=== PATIENT | male | born 1970 | race African-American/Black ===

== ENCOUNTER 2023-04-10 08:34 | Outpatient (AMB) | payer OTHER, SELFPAY ==
--- NOTE | 2023-04-10 08:35 | A.OFFPC_ITS ---
Vital Signs 04/10/23 08:37 Height 5 ft 9 in Weight 224 lb 4 oz BMI 33.1 BP 122/82 Blood Pressure Location Lt brachial Position Sitting Pulse 91 Pulse Source Pulse Oximeter Pulse Oximetry (%) 98 Oxygen Delivery Method Room Air Intake Visit Reasons: Annual Exam Intake Note: Patient is here today for a physical. 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 per policy Accompanied by: Self / Same As Patient Allergies No Known Allergies Allergy (Verified 04/10/23 08:37) seasonal Allergy (Unknown, Uncoded 04/10/23 08:37) Unknown Medication List - Last Reconciled 04/10/23 by Tristin Feng MD amlodipine 10 mg PO DAILY hydrochlorothiazide 25 mg PO DAILY lisinopril 40 mg PO DAILY metformin ER 1,000 mg (2 x 500 mg) PO BID Tobacco use date assessed: 04/10/23 Dental Screening Dental Screen Date: 04/10/23 Did you have a dental visit in the last 12 months?: Yes Did you have a dental problem in the last 6 months where you did not have access to dental care?: No Was dental information given to patient?: Patient has dentist HPI Annual Exam HPI Details HTN and DM [facility] Medical History (Updated 04/10/23 @ 09:36 by Tristin Feng MD) Diabetes mellitus with coincident hypertension Obesity Type 2 diabetes mellitus without complications Surgical History No pertinent past surgical history Family History Father No problems noted. Mother Stroke Hypertension Cancer Brother Substance use disorder Social History Housing: House Alcohol intake: current Alcohol intake frequency: holidays/special occasions only Patient Tobacco Use Status: Never used Tobacco e-Cigarette/Vaping Use: Never Used Second Hand Smoke Exposure: No service: No Current occupational status: employed Cognitive needs: No Hearing needs: No Vision needs: No Questionnaire Thrive Questionnaire Date Thrive assessed: 02/05/23 NIDHI-7 AMB Questionnaire NIDHI-7 Date NIDHI - 7 assessed: 10/06/22 Source: Developed by Drs. Otto Bhatt, Esha Valera, Fareed Wynn and colleagues, with an educational juan from [employer],. Review of Systems Const Denies chills, Denies fatigue, Denies headache(s) and Denies weight loss Eyes Denies change in vision, Denies diplopia and Denies eye pain ENT Denies vertigo, Denies dizziness, Denies headache(s) and Denies nasal discharge Card Denies chest pain, Denies rapid heart rate and Denies dyspnea on exertion Resp Denies chest congestion, Denies cough, Denies pain with cough and Denies dyspnea on exertion GI Denies abdominal pain, Denies hematochezia and Denies change in bowel habits Musc Denies myalgias, Denies arthralgias and Denies joint swelling Skin/Breast Denies lesions and Denies unusual bruising Neuro Denies vertigo, Denies dizziness, Denies headache(s) and Denies focal weakness Endo Denies fatigue Physical exam (Primary Care) Vital Signs: Last Vital Signs Pulse 91 04/10/23 08:37 BP 122/82 04/10/23 08:37 Pulse Ox 98 04/10/23 08:37 Oxygen Delivery Method Room Air 04/10/23 08:37 BMI result Body Mass Index 33.1 obesity BMI Assessment/Plan discussion: High BMI High, discussed plan: lifestyle, dietary and physical activity Tobacco/Smoking Status: Tobacco use Status Tobacco use date assessed 04/10/23 04/10/23 08:41 Patient Tobacco Use Status Never used Tobacco 04/10/23 08:36 e-Cigarette/Vaping Use Never Used 04/10/23 08:36 Thrive Assessment: Date of Thrive Assessment Date Thrive assessed 02/05/23 04/10/23 08:36 Const General: cooperative, healthy appearing and no acute distress Orientation/consciousness: oriented to person, oriented to place and oriented to time [facility] Head: Yes normal to inspection, Yes normocephalic and Yes atraumatic Mouth: Normal oral and palatal mucosa present and tongue normal Throat: Yes posterior oropharynx normal and Yes uvula midline Eyes General: appearance normal, both eyes and all related structures Neck Neck: Yes normal visual inspection, Yes full ROM and Yes no lymphadenopathy Thyroid: Thyroid normal Carotids: normal carotid upstroke Chest Chest palpation & inspection: normal inspection of the chest Resp Effort & Inspection: normal respiratory effort and able to speak in complete sentences Auscultation: clear to auscultation bilaterally Cardio Jugular venous distension: no JVD Palpation: normal PMI Rate: regular rate Rhythm: regular rhythm Heart sounds: S1 normal heart sound present and S2 normal heart sound present GI Inspection: Yes normal to inspection Palpation (GI): Soft to palpation and No hepatosplenomegaly present Auscultation: normal bowel sounds General: Yes no CVA tenderness Back/Spine/Pelvis Back: no CVA tenderness Skin General skin exam: no rashes or lesions noted Neuro General: oriented to person, oriented to place and oriented to time Extrem General: Yes normal to inspection and Yes full ROM Assessment and Plan Assessment & Plan (1) Physical exam: Code(s): Z00.00 - Encounter for general adult medical examination without abnormal findings Plan: stable (2) Diabetes mellitus with coincident hypertension: Code(s): E11.9 - Type 2 diabetes mellitus without complications; I10 - Essential (primary) hypertension Plan: in good control; check labs (3) Obesity: Code(s): E66.9 - Obesity, unspecified Plan: as above (4) Hypertension: Code(s): I10 - Essential (primary) hypertension Plan: stable Orders: Orders Comprehensive Henry. Panel Fast Today N28.9 - Disorder of kidney and ureter, unspecified Hemoglobin A1c Today R73.9 - Hyperglycemia, unspecified Lipid Panel Today E78.5 - Hyperlipidemia, unspecified Microalbumin, Random (w Creat) Today E11.69 - Type 2 diabetes mellitus with other specified complication, E66.01 - Morbid (severe) obesity due to excess calories Complete Blood Count Auto Diff Today D64.9 - Anemia, unspecified Coding Level of Care Code Est Pt Prev Care 40-64y(89390) Diagnoses Physical exam Z00.00 Diabetes mellitus with coincident hypertension E11.9; I10 Obesity E66.9 Hypertension I10
[2023-04-10 08:37] VITALS: BP 122/82; PULSE 91; O2SAT 98; BMI 33.1
== END 2023-04-10 09:22 | disposition home or self-care (01) ==
PROVIDERS: PCP Internal Medicine; Visit Provider Internal Medicine
DX: Z00.00 Encounter for general adult medical examination without abnormal findings (principal); E11.9 Type 2 diabetes mellitus without complications; Z68.33 Body mass index [BMI] 33.0-33.9, adult; E66.9 Obesity, unspecified; I10 Essential (primary) hypertension
CPT/HCPCS: 99396

== ENCOUNTER 2023-07-11 08:37 | Outpatient (AMB) | payer OTHER, SELFPAY ==
[2023-07-11 08:43] VITALS: BP 132/84; PULSE 90; O2SAT 98; BMI 33.1
--- NOTE | 2023-07-11 08:43 | MHC.PC.OV ---
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 policy Accompanied by: Self / Same As Patient Allergies No Known Allergies Allergy (Verified 07/11/23 08:43) seasonal Allergy (Unknown, Uncoded 07/11/23 08:43) Unknown Medication List - Last Reconciled 07/11/23 by Tristin Feng MD amlodipine 10 mg PO DAILY hydrochlorothiazide 25 mg PO DAILY lisinopril 40 mg PO DAILY metformin ER 1,000 mg (2 x 500 mg) PO BID Tobacco use date assessed: 04/10/23 Dental Screening Dental Screen Date: 07/11/23 Did you have a dental visit in the last 12 months?: Yes Did you have a dental problem in the last 6 months where you did not have access to dental care?: No Was dental information given to patient?: Patient has dentist HPI 3mth f/u HPI Details DM HTN and obesity; A1C 7.0 [facility] Medical History Obesity Diabetes mellitus with coincident hypertension Type 2 diabetes mellitus without complications Surgical History No pertinent past surgical history Family History Father No problems noted. Mother Stroke Hypertension Cancer Brother Substance use disorder Social History Housing: House Alcohol intake: current Alcohol intake frequency: holidays/special occasions only Patient Tobacco Use Status: Never used Tobacco e-Cigarette/Vaping Use: Never Used Second Hand Smoke Exposure: No service: No Current occupational status: employed Cognitive needs: No Hearing needs: No Vision needs: No Questionnaire Thrive Questionnaire Date Thrive assessed: 02/05/23 NIDHI-7 AMB Questionnaire NIDHI-7 Date NIDHI - 7 assessed: 10/06/22 Source: Developed by Drs. Otto Bhatt, Esha Valera, Faered Wynn and colleagues, with an educational juan from [employer]. Review of Systems Const Denies chills, Denies headache(s) and Denies weight loss ENT Denies headache(s) Card Denies chest pain, Denies syncope, Denies irregular heart rhythm and Denies dyspnea Resp Denies chest congestion, Denies cough and Denies dyspnea GI Denies abdominal pain, Denies change in stool character, Denies nausea and Denies vomiting Musc Denies deformity and Denies joint swelling Neuro Denies syncope and Denies headache(s) Physical exam (Primary Care) Vital Signs: Last Vital Signs Pulse 90 07/11/23 08:43 BP 132/84 07/11/23 08:43 Pulse Ox 98 07/11/23 08:43 Oxygen Delivery Method Room Air 07/11/23 08:43 BMI result Body Mass Index 33.1 obesity BMI Assessment/Plan discussion: High BMI High, discussed plan: lifestyle, weight reduction, dietary and physical activity Tobacco/Smoking Status: Tobacco use Status Tobacco use date assessed 04/10/23 07/11/23 08:44 Patient Tobacco Use Status Never used Tobacco 07/11/23 08:44 e-Cigarette/Vaping Use Never Used 07/11/23 08:44 Thrive Assessment: Date of Thrive Assessment Date Thrive assessed 02/05/23 07/11/23 08:44 Const General: cooperative, comfortable, no acute distress and alert Neck Neck: Yes no lymphadenopathy Thyroid: Thyroid normal Resp Effort & Inspection: normal respiratory effort Auscultation: clear to auscultation bilaterally Percussion: percussion normal Cardio Jugular venous distension: no JVD Palpation: normal PMI Rate: regular rate Rhythm: regular rhythm Heart sounds: S1 normal heart sound present and S2 normal heart sound present GI Inspection: Yes normal to inspection Palpation (GI): No hepatosplenomegaly present Skin General skin exam: no rashes or lesions noted Extrem General: Yes no clubbing, cyanosis or edema Assessment and Plan Assessment & Plan (1) Diabetes mellitus with coincident hypertension: Code(s): E11.9 - Type 2 diabetes mellitus without complications; I10 - Essential (primary) hypertension Plan: stable; same rx (2) Obesity: Code(s): E66.9 - Obesity, unspecified Plan: as above (3) Hypertension: Code(s): I10 - Essential (primary) hypertension Plan: stable; same rx Orders: Orders AMB Hemoglobin A1c Today E11.9 - Type 2 diabetes mellitus without complications, I10 - Essential (primary) hypertension Glucose Fasting Today R73.9 - Hyperglycemia, unspecified Hemoglobin A1c Today R73.9 - Hyperglycemia, unspecified Coding Level of Care Code Est Pt Level 4 (11157) Diagnoses Diabetes mellitus with coincident hypertension E11.9; I10 Obesity E66.9 Hypertension I10
== END 2023-07-11 08:58 | disposition home or self-care (01) ==
PROVIDERS: PCP Internal Medicine; Visit Provider Internal Medicine
DX: E11.9 Type 2 diabetes mellitus without complications (principal); I10 Essential (primary) hypertension; E66.9 Obesity, unspecified; Z68.33 Body mass index [BMI] 33.0-33.9, adult
CPT/HCPCS: 83036; 99214

== ENCOUNTER 2023-10-15 08:06 | Outpatient (AMB) | payer OTHER, SELFPAY ==
[2023-10-15 08:34] VITALS: BP 136/86; PULSE 88; O2SAT 100; BMI 33.7
--- NOTE | 2023-10-15 08:34 | MHC.PC.OV ---
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 Accompanied by: Self / Same As Patient Allergies No Known Allergies Allergy (Verified 10/15/23 08:34) seasonal Allergy (Unknown, Uncoded 10/15/23 08:34) Unknown Medication List - Last Reconciled 10/15/23 by Tristin Feng MD amlodipine 10 mg PO DAILY hydrochlorothiazide 25 mg PO DAILY lisinopril 40 mg PO DAILY metformin ER 1,000 mg (2 x 500 mg) PO BID Tobacco use date assessed: 10/15/23 Dental Screening Dental Screen Date: 10/15/23 Did you have a dental visit in the last 12 months?: Yes Did you have a dental problem in the last 6 months where you did not have access to dental care?: No Was dental information given to patient?: Patient has dentist HPI 3 Month F/U HPI Details poorly controlled DM with diet and exercise non-compliance [facility] Medical History Obesity Diabetes mellitus with coincident hypertension Type 2 diabetes mellitus without complications Surgical History No pertinent past surgical history Family History Father No problems noted. Mother Stroke Hypertension Cancer Brother Substance use disorder Social History Housing: House Alcohol intake: current Alcohol intake frequency: holidays/special occasions only Patient Tobacco Use Status: Never used Tobacco e-Cigarette/Vaping Use: Never Used Second Hand Smoke Exposure: No service: No Current occupational status: employed Cognitive needs: No Hearing needs: No Vision needs: No Questionnaire PHQ-9 Over the last 2 weeks, how often have you been bothered by any of the following problems? 1. Little interest or pleasure in doing things: not at all 2. Feeling down, depressed, or hopeless: not at all 3. Trouble falling or staying asleep, or sleeping too much: not at all 4. Feeling tired or having little energy: not at all 5. Poor appetite or overeating: not at all 6. Feeling bad about yourself - or that you are a failure or have let yourself or your family down: not at all 7. Trouble concentrating on things, such as reading the newspaper or watching television: not at all 8. Moving or speaking so slowly that other people could have noticed. Or the opposite - being so fidgety or restless that you have been moving around a lot more than usual: not at all 9. Thoughts that you would be better off or of hurting yourself in some way: not at all Total score: 0 Depression Screening Interpretation: Negative Depression Screening Done: Yes 92474 - PHQ-9 Billing: Yes Source: Developed by Drs. Otto Bhatt, Esha Valera, Fareed Wynn and colleagues, with an educational juan from [employer]. Thrive Questionnaire Date Thrive assessed: 10/15/23 I am a: Patient What is your living situation today?: I have a steady place to live Within the past 12 months, did the food you bought not last and you didn't have the money to get more?: Never true Within the past 12 months, did you worry whether your food would run out before you got money to buy more?: Never true Do you have trouble paying for medicines?: No Do you have trouble getting transportation to medical appointments?: No Do you have trouble paying your heating and electricity bill?: No Do you have trouble taking care of your child, family member or friend?: No Do you have trouble with day-to-day activities such as bathing, preparing meals, shopping, managing finances, etc.?: No Are you currently unemployed and looking for a job?: No Are you interested in more education?: No Please select the resources that you would like help with: None THRIVE Score: 0 AUDIT C Alcohol Use Questionnaire (AUDIT-C) 1. How often do you have a drink containing alcohol?: Never Total Score: 0 Score Reviewed/Action Taken: Yes NIDHI-7 AMB Questionnaire NIDHI-7 Date NIDHI - 7 assessed: 10/15/23 Feeling nervous, anxious, or on edge: 0 = Not at all Not being able to stop or control worryin = Not at all Worrying too much about different things: 0 = Not at all Trouble relaxin = Not at all Being so restless that it is hard to sit still: 0 = Not at all Becoming easily annoyed or irritable: 0 = Not at all Feeling afraid as if something awful might happen: 0 = Not at all Total NIDHI-7 score (0-4 normal; 5-9 mild; 10-14 moderate; 15-21 severe): 0 Source: Developed by Drs. Otto Bhatt, Esha Valera, Fareed Wynn and colleagues, with an educational juan from [employer]. NIDHI-7 Assessment Billing NIDHI-7 Assessment Tool: NIDHI-7 Assessment 02852 Review of Systems Const Denies chills, Denies headache(s) and Denies weight loss ENT Denies headache(s) Card Denies chest pain, Denies syncope, Denies irregular heart rhythm and Denies dyspnea Resp Denies chest congestion, Denies cough and Denies dyspnea GI Denies abdominal pain, Denies change in stool character, Denies nausea and Denies vomiting Musc Denies deformity and Denies joint swelling Neuro Denies syncope and Denies headache(s) Physical exam (Primary Care) Vital Signs: Last Vital Signs Pulse 88 10/15/23 08:34 BP 136/86 10/15/23 08:34 Pulse Ox 100 10/15/23 08:34 Oxygen Delivery Method Room Air 10/15/23 08:34 BMI result Body Mass Index 33.7 Tobacco/Smoking Status: Tobacco use Status Tobacco use date assessed 10/15/23 10/15/23 08:35 Patient Tobacco Use Status Never used Tobacco 10/15/23 08:35 e-Cigarette/Vaping Use Never Used 10/15/23 08:35 PHQ-9: PHQ-9 Score PHQ-9: Total score 0 10/15/23 08:49 Depression Screening Interpretation: Negative Thrive Assessment: Date of Thrive Assessment Date Thrive assessed 10/15/23 10/15/23 08:35 Const General: cooperative, comfortable, no acute distress and alert Neck Neck: Yes no lymphadenopathy Thyroid: Thyroid normal Resp Effort & Inspection: normal respiratory effort Auscultation: clear to auscultation bilaterally Percussion: percussion normal Cardio Jugular venous distension: no JVD Palpation: normal PMI Rate: regular rate Rhythm: regular rhythm Heart sounds: S1 normal heart sound present and S2 normal heart sound present GI Inspection: Yes normal to inspection Palpation (GI): No hepatosplenomegaly present Skin General skin exam: no rashes or lesions noted Extrem General: Yes no clubbing, cyanosis or edema Results AMB Hemoglobin A1c AMB Hemoglobin A1c 8.9 % Last Edit by ZI Issa on 10/15/23 08:50 Results Reviewed Results Reviewed: Laboratory Last Values Hgb A1c (Clinic) 8.9 % (4.0-6.0) H 10/15/23 08:35 Assessment and Plan Assessment & Plan (1) Diabetes mellitus with coincident hypertension: Code(s): E11.9 - Type 2 diabetes mellitus without complications; I10 - Essential (primary) hypertension Plan: same rx; improve diet (2) Hypertension: Code(s): I10 - Essential (primary) hypertension Plan: stable; same rx Orders: Orders AMB Hemoglobin A1c Today E11.9 - Type 2 diabetes mellitus without complications Lipid Panel Today E78.5 - Hyperlipidemia, unspecified Glucose Fasting Today R73.9 - Hyperglycemia, unspecified Hemoglobin A1c Today R73.9 - Hyperglycemia, unspecified Coding Level of Care Code Est Pt Level 3 (94579) Diagnoses Diabetes mellitus with coincident hypertension E11.9; I10 Hypertension I10 Additional Codes NIDHI-7 Assessment Billing - NIDHI-7 Assessment Tool: NIDHI-7 Assessment [id number] ([id number])
== END 2023-10-15 08:49 | disposition home or self-care (01) ==
PROVIDERS: PCP Internal Medicine; Visit Provider Internal Medicine
DX: E11.9 Type 2 diabetes mellitus without complications (principal); I10 Essential (primary) hypertension
CPT/HCPCS: 83036; 99213

== ENCOUNTER 2024-03-17 08:07 | Outpatient (AMB) | payer OTHER, SELFPAY ==
[2024-03-17 08:16] VITALS: BP 148/80; PULSE 81; O2SAT 98; BMI 33.1
--- NOTE | 2024-03-17 08:16 | A.OFFPC_ITS ---
Vital Signs 03/17/24 08:16 Height 5 ft 9 in Weight 224 lb BMI 33.1 BP 148/80 H Blood Pressure Location Lt brachial Position Sitting Pulse 81 Pulse Source Pulse Oximeter Pulse Oximetry (%) 98 Oxygen Delivery Method Room Air Intake Visit Reasons: 4mth f/u Allergies No Known Allergies Allergy (Verified 03/17/24 08:16) seasonal Allergy (Unknown, Uncoded 03/17/24 08:16) Unknown Medication List - Last Reconciled 03/17/24 by Tristin Feng MD amlodipine 10 mg PO DAILY hydrochlorothiazide 25 mg PO DAILY lisinopril 40 mg PO DAILY metformin ER 1,000 mg (2 x 500 mg) PO BID Tobacco use date assessed: 10/15/23 Dental Screening Dental Screen Date: 10/15/23 HPI 4mth f/u HPI Details DM in poor control; dietary indiscretion [facility] Medical History Obesity Diabetes mellitus with coincident hypertension Type 2 diabetes mellitus without complications Surgical History No pertinent past surgical history Family History Father No problems noted. Mother Stroke Hypertension Cancer Brother Substance use disorder Social History Housing: House Alcohol intake: current Alcohol intake frequency: holidays/special occasions only Patient Tobacco Use Status: Never used Tobacco e-Cigarette/Vaping Use: Never Used Second Hand Smoke Exposure: No service: No Current occupational status: employed Cognitive needs: No Hearing needs: No Vision needs: No Questionnaire PHQ-9 Over the last 2 weeks, how often have you been bothered by any of the following problems? 1. Little interest or pleasure in doing things: not at all 2. Feeling down, depressed, or hopeless: not at all 3. Trouble falling or staying asleep, or sleeping too much: not at all 4. Feeling tired or having little energy: not at all 5. Poor appetite or overeating: not at all 6. Feeling bad about yourself - or that you are a failure or have let yourself or your family down: not at all 7. Trouble concentrating on things, such as reading the newspaper or watching television: not at all 8. Moving or speaking so slowly that other people could have noticed. Or the opposite - being so fidgety or restless that you have been moving around a lot more than usual: not at all 9. Thoughts that you would be better off or of hurting yourself in some way: not at all Total score: 0 Depression Screening Interpretation: Negative Depression Screening Done: Yes 41143 - PHQ-9 Billing: Yes Source: Developed by Drs. Otto Bhatt, Fareed Shepherd and colleagues, with an educational juan from [employer]. Thrive Questionnaire Date Thrive assessed: 10/15/23 AUDIT C Alcohol Use Questionnaire (AUDIT-C) 1. How often do you have a drink containing alcohol?: Never Total Score: 0 Score Reviewed/Action Taken: Yes NIDHI-7 AMB Questionnaire NIDHI-7 Date NIDHI - 7 assessed: 10/15/23 Source: Developed by Drs. Otto Bhatt, Fareed Shepherd and colleagues, with an educational juan from [employer]. Review of Systems Const Denies chills, Denies headache(s) and Denies weight loss ENT Denies headache(s) Card Denies chest pain, Denies syncope, Denies irregular heart rhythm and Denies dyspnea Resp Denies chest congestion, Denies cough and Denies dyspnea GI Denies abdominal pain, Denies change in stool character, Denies nausea and Denies vomiting Musc Denies deformity and Denies joint swelling Neuro Denies syncope and Denies headache(s) Physical exam (Primary Care) Vital Signs: Last Vital Signs Pulse 81 03/17/24 08:16 BP 148/80 H 03/17/24 08:16 Pulse Ox 98 03/17/24 08:16 Oxygen Delivery Method Room Air 03/17/24 08:16 BMI result Body Mass Index 33.1 Tobacco/Smoking Status: Tobacco use Status Tobacco use date assessed 10/15/23 03/17/24 08:17 Patient Tobacco Use Status Never used Tobacco 03/17/24 08:17 e-Cigarette/Vaping Use Never Used 03/17/24 08:17 PHQ-9: PHQ-9 Score PHQ-9: Total score 0 03/17/24 08:31 Depression Screening Interpretation: Negative Thrive Assessment: Date of Thrive Assessment Date Thrive assessed 10/15/23 03/17/24 08:17 Const General: cooperative, comfortable, no acute distress and alert Neck Neck: Yes no lymphadenopathy Thyroid: Thyroid normal Resp Effort & Inspection: normal respiratory effort Auscultation: clear to auscultation bilaterally Percussion: percussion normal Cardio Jugular venous distension: no JVD Palpation: normal PMI Rate: regular rate Rhythm: regular rhythm Heart sounds: S1 normal heart sound present and S2 normal heart sound present GI Inspection: Yes normal to inspection Palpation (GI): No hepatosplenomegaly present Skin General skin exam: no rashes or lesions noted Extrem General: Yes no clubbing, cyanosis or edema Results AMB Hemoglobin A1c AMB Hemoglobin A1c 10.2 % Last Edit by Hanh Hernandez CMA on 03/17/24 08:31 Results Reviewed Results Reviewed: Laboratory Last Values Hgb A1c (Clinic) 10.2 % (4.0-6.0) H 03/17/24 08:17 Assessment and Plan Assessment & Plan (1) Diabetes mellitus with coincident hypertension: Code(s): E11.9 - Type 2 diabetes mellitus without complications; I10 - Essential (primary) hypertension Plan: improve diet Orders: Orders Lipid Panel Today Z13.220 - Encounter for screening for lipoid disorders Complete Blood Count Auto Diff Today Z13.0 - Encounter for screening for diseases of the blood and blood-forming organs and certain disorders involving the immune mechanism Comprehensive [place]. Panel Fast Today Z13.9 - Encounter for screening, unspecified Hemoglobin A1c Today R73.9 - Hyperglycemia, unspecified AMB Hemoglobin A1c Today Z13.9 - Encounter for screening, unspecified Coding Level of Care Code Est Pt Level 3 (44275) Diagnoses Diabetes mellitus with coincident hypertension E11.9; I10
== END 2024-03-17 08:57 | disposition home or self-care (01) ==
PROVIDERS: PCP Internal Medicine; Visit Provider Internal Medicine
DX: E11.9 Type 2 diabetes mellitus without complications (principal); I10 Essential (primary) hypertension; Z13.9 Encounter for screening, unspecified
CPT/HCPCS: 83036; 99213

== ENCOUNTER 2024-06-18 08:08 | Outpatient (AMB) | payer OTHER, SELFPAY ==
--- NOTE | 2024-06-18 08:16 | MHC.PC.OV ---
Vital Signs 06/18/24 08:17 Height 5 ft 9 in Weight 217 lb 4 oz BMI 32.1 BP 120/80 Blood Pressure Location Lt brachial Position Sitting Pulse 89 Pulse Source Pulse Oximeter Pulse Oximetry (%) 98 Oxygen Delivery Method Room Air Intake Visit Reasons: 3 month f/u Intake Note: Patient is here to follow up on DM, HTN. Hospital Mortician Required: No Director Security Risk Management: Not Required per policy Accompanied by: Self / Same As Patient Allergies No Known Allergies Allergy (Verified 06/18/24 08:17) seasonal Allergy (Unknown, Uncoded 06/18/24 08:17) Unknown Medication List - Last Reconciled 06/18/24 by Tristin Feng MD amlodipine 10 mg PO DAILY hydrochlorothiazide 25 mg PO DAILY lisinopril 40 mg PO DAILY metformin ER 1,000 mg (2 x 500 mg) PO BID Tobacco use date assessed: 06/18/24 Dental Screening Dental Screen Date: 10/15/23 HPI 3 month f/u HPI Details DM; poor control due to dietary indiscretion; A1C over 8; refuses more rx PFSH Medical History Obesity Diabetes mellitus with coincident hypertension Type 2 diabetes mellitus without complications Surgical History No pertinent past surgical history Family History Father No problems noted. Mother Stroke Hypertension Cancer Brother Substance use disorder Social History Housing: House Alcohol intake: current Alcohol intake frequency: holidays/special occasions only Patient Tobacco Use Status: Never used Tobacco e-Cigarette/Vaping Use: Never Used Second Hand Smoke Exposure: No service: No Current occupational status: employed Cognitive needs: No Hearing needs: No Vision needs: No Questionnaire Thrive Questionnaire Date Thrive assessed: 10/15/23 NIDHI-7 AMB Questionnaire NIDHI-7 Date NIDHI - 7 assessed: 10/15/23 Source: Developed by Drs. Otto Bhatt, Esha Valera, Fareed Wynn and colleagues, with an educational juan from [employer]. Review of Systems Const Denies chills, Denies headache(s) and Denies weight loss ENT Denies headache(s) Card Denies chest pain, Denies syncope, Denies irregular heart rhythm and Denies dyspnea Resp Denies chest congestion, Denies cough and Denies dyspnea GI Denies abdominal pain, Denies change in stool character, Denies nausea and Denies vomiting Musc Denies deformity and Denies joint swelling Neuro Denies syncope and Denies headache(s) Physical exam (Primary Care) Vital Signs: Last Vital Signs Pulse 89 06/18/24 08:17 BP 120/80 06/18/24 08:17 Pulse Ox 98 06/18/24 08:17 Oxygen Delivery Method Room Air 06/18/24 08:17 BMI result Body Mass Index 32.1 Tobacco/Smoking Status: Tobacco use Status Tobacco use date assessed 06/18/24 06/18/24 08:22 Patient Tobacco Use Status Never used Tobacco 06/18/24 08:22 e-Cigarette/Vaping Use Never Used 06/18/24 08:22 Thrive Assessment: Date of Thrive Assessment Date Thrive assessed 10/15/23 06/18/24 08:22 Const General: cooperative, comfortable, no acute distress and alert Neck Neck: Yes no lymphadenopathy Thyroid: Thyroid normal Resp Effort & Inspection: normal respiratory effort Auscultation: clear to auscultation bilaterally Percussion: percussion normal Cardio Jugular venous distension: no JVD Palpation: normal PMI Rate: regular rate Rhythm: regular rhythm Heart sounds: S1 normal heart sound present and S2 normal heart sound present GI Inspection: Yes normal to inspection Palpation (GI): No hepatosplenomegaly present Skin General skin exam: no rashes or lesions noted Extrem General: Yes no clubbing, cyanosis or edema Results AMB Hemoglobin A1c AMB Hemoglobin A1c 8.3 % Last Edit by ZI Pritchett on 06/18/24 08:27 Results Reviewed Results Reviewed: Laboratory Last Values Hgb A1c (Clinic) 8.3 % (4.0-6.0) H 06/18/24 08:15 Coding Level of Care Code Est Pt Level 3 (28828) Diagnoses Diabetes mellitus E11.9 Assessment & Plan Assessment & Plan (1) Diabetes mellitus: Code(s): E11.9 - Type 2 diabetes mellitus without complications Category: Medical Plan: stable; improve diet Orders: Orders Comprehensive [place]. Panel Fast Today Z13.9 - Encounter for screening, unspecified Hemoglobin A1c Today R73.9 - Hyperglycemia, unspecified AMB Hemoglobin A1c Today E11.9 - Type 2 diabetes mellitus without complications, I10 - Essential (primary) hypertension Lipid Panel Today Z13.220 - Encounter for screening for lipoid disorders
[2024-06-18 08:17] VITALS: BP 120/80; PULSE 89; O2SAT 98; BMI 32.1
== END 2024-06-18 08:41 | disposition home or self-care (01) ==
LOC: HO.HMCH 08:09
PROVIDERS: PCP Internal Medicine; Visit Provider Internal Medicine
DX: E11.9 Type 2 diabetes mellitus without complications (principal); I10 Essential (primary) hypertension

== ENCOUNTER → 2024-06-18 08:08 | Outpatient (BNVA) | payer OTHER, SELFPAY | PROVIDERS: PCP Internal Medicine; Visit Provider Internal Medicine | DX: E11.9 Type 2 diabetes mellitus without complications (principal) | CPT/HCPCS: 83036 ==

== ENCOUNTER 2024-09-01 09:40 | Outpatient (AMB) | payer OTHER, SELFPAY ==
--- NOTE | 2024-09-01 09:43 | A.OFFPC_ITS ---
Vital Signs 09/01/24 09:44 Height 5 ft 9 in Weight 219 lb 8 oz BMI 32.4 BP 122/80 Blood Pressure Location Lt brachial Position Sitting Pulse 112 H Pulse Source Pulse Oximeter Pulse Oximetry (%) 98 Oxygen Delivery Method Room Air Intake Visit Reasons: rt knee Dr Perez 09/04 Geospatial Image Analyst Required: No Accompanied by: Self / Same As Patient Allergies No Known Allergies Allergy (Verified 06/18/24 08:17) seasonal Allergy (Unknown, Uncoded 06/18/24 08:17) Unknown Tobacco use date assessed: 06/18/24 Dental Screening Dental Screen Date: 10/15/23 HPI rt knee Chris 09/04 HPI Details Scheduled for surgery to repair his right patella rupture; he has diabetes under fair control and hypertension; no history of CAD [facility] Medical History Obesity Diabetes mellitus with coincident hypertension Type 2 diabetes mellitus without complications Surgical History No pertinent past surgical history Family History Father No problems noted. Mother Stroke Hypertension Cancer Brother Substance use disorder Social History Housing: House Alcohol intake: current Alcohol intake frequency: holidays/special occasions only Patient Tobacco Use Status: Never used Tobacco e-Cigarette/Vaping Use: Never Used Second Hand Smoke Exposure: No service: No Current occupational status: employed Cognitive needs: No Hearing needs: No Vision needs: No Questionnaire PHQ-9 Over the last 2 weeks, how often have you been bothered by any of the following problems? 1. Little interest or pleasure in doing things: not at all 2. Feeling down, depressed, or hopeless: not at all 3. Trouble falling or staying asleep, or sleeping too much: not at all 4. Feeling tired or having little energy: not at all 5. Poor appetite or overeating: not at all 6. Feeling bad about yourself - or that you are a failure or have let yourself or your family down: not at all 7. Trouble concentrating on things, such as reading the newspaper or watching television: not at all 8. Moving or speaking so slowly that other people could have noticed. Or the opposite - being so fidgety or restless that you have been moving around a lot more than usual: not at all 9. Thoughts that you would be better off or of hurting yourself in some way: not at all Total score: 0 Depression Screening Interpretation: Negative Depression Screening Done: Yes 26147 - PHQ-9 Billing: Yes Source: Developed by Drs. Otto Bhatt, Esha Valera, Fareed Wynn and colleagues, with an educational juan from [employer]. Thrive Questionnaire Date Thrive assessed: 09/01/24 I am a: Patient What is your living situation today?: I have a steady place to live Within the past 12 months, did the food you bought not last and you didn't have the money to get more?: Never true Within the past 12 months, did you worry whether your food would run out before you got money to buy more?: Never true Do you have trouble paying for medicines?: No Do you have trouble getting transportation to medical appointments?: No Do you have trouble paying your heating and electricity bill?: No Do you have trouble taking care of your child, family member or friend?: No Do you have trouble with day-to-day activities such as bathing, preparing meals, shopping, managing finances, etc.?: No Are you currently unemployed and looking for a job?: No Are you interested in more education?: No Please select the resources that you would like help with: None Currently or been in a relationship where the following occur: No concerns reported THRIVE Score: 0 AUDIT C Alcohol Use Questionnaire (AUDIT-C) 1. How often do you have a drink containing alcohol?: 2-4 times a month 2. How many drinks containing alcohol do you have on a typical day when you are drinking?: 1 or 2 3. How often do you have six or more drinks on one occasion?: Monthly Total Score: 4 NIDHI-7 AMB Questionnaire NIDHI-7 Date NIDHI - 7 assessed: 09/01/24 Feeling nervous, anxious, or on edge: 0 = Not at all Not being able to stop or control worryin = Not at all Worrying too much about different things: 0 = Not at all Trouble relaxin = Not at all Being so restless that it is hard to sit still: 0 = Not at all Becoming easily annoyed or irritable: 0 = Not at all Feeling afraid as if something awful might happen: 0 = Not at all Total NIDHI-7 score (0-4 normal; 5-9 mild; 10-14 moderate; 15-21 severe): 0 Source: Developed by Drs. Otto Bhatt, Esha Valera, Fareed Wynn and colleagues, with an educational juan from [employer]. NIDHI-7 Assessment Billing NIDHI-7 Assessment Tool: NIDHI-7 Assessment 04667 Review of Systems Const Denies chills, Denies fatigue, Denies headache(s) and Denies weight loss Eyes Denies change in vision, Denies diplopia and Denies eye pain ENT Denies vertigo, Denies dizziness, Denies headache(s) and Denies nasal discharge Card Denies chest pain, Denies rapid heart rate and Denies dyspnea on exertion Resp Denies chest congestion, Denies cough, Denies pain with cough and Denies dyspnea on exertion GI Denies abdominal pain, Denies hematochezia and Denies change in bowel habits Musc Denies myalgias, Denies arthralgias and Denies joint swelling Skin/Breast Denies lesions and Denies unusual bruising Neuro Denies vertigo, Denies dizziness, Denies headache(s) and Denies focal weakness Endo Denies fatigue Physical exam (Primary Care) Vital Signs: Last Vital Signs Pulse 112 H 09/01/24 09:44 BP 122/80 09/01/24 09:44 Pulse Ox 98 09/01/24 09:44 Oxygen Delivery Method Room Air 09/01/24 09:44 BMI result Body Mass Index 32.4 Tobacco/Smoking Status: Tobacco use Status Tobacco use date assessed 06/18/24 09/01/24 09:49 Patient Tobacco Use Status Never used Tobacco 09/01/24 09:49 e-Cigarette/Vaping Use Never Used 09/01/24 09:49 PHQ-9: PHQ-9 Score PHQ-9: Total score 0 09/01/24 09:49 Depression Screening Interpretation: Negative Thrive Assessment: Date of Thrive Assessment Date Thrive assessed 09/01/24 09/01/24 09:49 Currently or been in a relationship where the following occur: No concerns reported Const General: cooperative, healthy appearing and no acute distress Orientation/consciousness: oriented to person, oriented to place and oriented to time HENMT Head: Yes normal to inspection, Yes normocephalic and Yes atraumatic Mouth: Normal oral and palatal mucosa present and tongue normal Throat: Yes posterior oropharynx normal and Yes uvula midline Eyes General: appearance normal, both eyes and all related structures Neck Neck: Yes normal visual inspection, Yes full ROM and Yes no lymphadenopathy Thyroid: Thyroid normal Carotids: normal carotid upstroke Chest Chest palpation & inspection: normal inspection of the chest Resp Effort & Inspection: normal respiratory effort and able to speak in complete sentences Auscultation: clear to auscultation bilaterally Cardio Jugular venous distension: no JVD Palpation: normal PMI Rate: regular rate Rhythm: regular rhythm Heart sounds: S1 normal heart sound present and S2 normal heart sound present GI Inspection: Yes normal to inspection Palpation (GI): Soft to palpation and No hepatosplenomegaly present Auscultation: normal bowel sounds General: Yes no CVA tenderness Back/Spine/Pelvis Back: no CVA tenderness Skin General skin exam: no rashes or lesions noted Neuro General: oriented to person, oriented to place and oriented to time Extrem General: Yes normal to inspection and Yes full ROM Coding Level of Care Code Est Pt Level 4 (96630) Diagnoses Preop exam for internal medicine Z01.818 Diabetes mellitus with coincident hypertension E11.9; I10 Hypertension I10 Additional Codes NIDHI-7 Assessment Billing - NIDHI-7 Assessment Tool: NIDHI-7 Assessment 06711 ([id number]) PHQ-9 - 81265 - PHQ-9 Billing: Yes ([id number]) Assessment & Plan Assessment & Plan (1) Preop exam for internal medicine: Code(s): Z01.818 - Encounter for other preprocedural examination Category: Medical Plan: low risk for cardiovascular complications; cleared for surgery (2) Diabetes mellitus with coincident hypertension: Code(s): E11.9 - Type 2 diabetes mellitus without complications; I10 - Essential (primary) hypertension Category: Medical Plan: stable; same rx (3) Hypertension: Code(s): I10 - Essential (primary) hypertension Category: Medical Plan: stable; same rx
[2024-09-01 09:44] VITALS: BP 122/80; PULSE 112; O2SAT 98; BMI 32.4
== END 2024-09-01 10:01 | disposition home or self-care (01) ==
PROVIDERS: PCP Internal Medicine; Visit Provider Internal Medicine
DX: Z01.818 Encounter for other preprocedural examination (principal); E11.9 Type 2 diabetes mellitus without complications; I10 Essential (primary) hypertension

== ENCOUNTER → 2024-09-01 09:40 | Outpatient (BNVA) | payer OTHER, SELFPAY | PROVIDERS: PCP Internal Medicine; Visit Provider Internal Medicine | DX: Z01.818 Encounter for other preprocedural examination (principal); E11.9 Type 2 diabetes mellitus without complications; I10 Essential (primary) hypertension | CPT/HCPCS: 96127 ==

== ENCOUNTER 2024-09-24 08:26 | Outpatient (AMB) | payer OTHER, SELFPAY ==
--- NOTE | 2024-09-24 08:29 | MHC.PC.OV ---
Vital Signs 09/24/24 08:30 Height 5 ft 9 in Weight 217 lb BMI 32.0 BP 144/92 H Blood Pressure Location Lt brachial Position Sitting Pulse 103 H Pulse Source Pulse Oximeter Pulse Oximetry (%) 98 Oxygen Delivery Method Room Air Intake Visit Reasons: 3 month f/u Allergies No Known Allergies Allergy (Verified 09/24/24 08:30) seasonal Allergy (Unknown, Uncoded 09/24/24 08:30) Unknown Tobacco use date assessed: 09/24/24 Dental Screening Dental Screen Date: 09/24/24 Did you have a dental visit in the last 12 months?: Yes Did you have a dental problem in the last 6 months where you did not have access to dental care?: No Was dental information given to patient?: Patient has dentist HPI 3 month f/u HPI Details ruptured right patellar tendon; has been repaired and doing well; needs rm form filled out [facility] Medical History Obesity Diabetes mellitus with coincident hypertension Type 2 diabetes mellitus without complications Surgical History No pertinent past surgical history Family History Father No problems noted. Mother Stroke Hypertension Cancer Brother Substance use disorder Social History Housing: House Alcohol intake: current Alcohol intake frequency: holidays/special occasions only Patient Tobacco Use Status: Never used Tobacco e-Cigarette/Vaping Use: Never Used Second Hand Smoke Exposure: No service: No Current occupational status: employed Cognitive needs: No Hearing needs: No Vision needs: No Questionnaire PHQ-9 Over the last 2 weeks, how often have you been bothered by any of the following problems? 1. Little interest or pleasure in doing things: not at all 2. Feeling down, depressed, or hopeless: not at all 3. Trouble falling or staying asleep, or sleeping too much: not at all 4. Feeling tired or having little energy: not at all 5. Poor appetite or overeating: not at all 6. Feeling bad about yourself - or that you are a failure or have let yourself or your family down: not at all 7. Trouble concentrating on things, such as reading the newspaper or watching television: not at all 8. Moving or speaking so slowly that other people could have noticed. Or the opposite - being so fidgety or restless that you have been moving around a lot more than usual: not at all 9. Thoughts that you would be better off or of hurting yourself in some way: not at all Total score: 0 Depression Screening Interpretation: Negative Depression Screening Done: Yes 55777 - PHQ-9 Billing: Yes Source: Developed by Drs. Otto Bhatt, Esha Valera, Fareed Wynn and colleagues, with an educational juan from [employer]. Thrive Questionnaire Date Thrive assessed: 09/01/24 AUDIT C Alcohol Use Questionnaire (AUDIT-C) 1. How often do you have a drink containing alcohol?: 2-4 times a month 2. How many drinks containing alcohol do you have on a typical day when you are drinking?: 1 or 2 3. How often do you have six or more drinks on one occasion?: Monthly Total Score: 4 NIDHI-7 AMB Questionnaire NIDHI-7 Date NIDHI - 7 assessed: 09/01/24 Source: Developed by Drs. Otto Bhatt, Esha Valera, Fareed Wynn and colleagues, with an educational juan from [employer]. Review of Systems Const Denies chills, Denies headache(s) and Denies weight loss ENT Denies headache(s) Card Denies chest pain, Denies syncope, Denies irregular heart rhythm and Denies dyspnea Resp Denies chest congestion, Denies cough and Denies dyspnea GI Denies abdominal pain, Denies change in stool character, Denies nausea and Denies vomiting Musc Denies deformity and Denies joint swelling Neuro Denies syncope and Denies headache(s) Physical exam (Primary Care) Vital Signs: Last Vital Signs Pulse 103 H 09/24/24 08:30 BP 144/92 H 09/24/24 08:30 Pulse Ox 98 09/24/24 08:30 Oxygen Delivery Method Room Air 09/24/24 08:30 BMI result Body Mass Index 32.0 Tobacco/Smoking Status: Tobacco use Status Tobacco use date assessed 09/24/24 09/24/24 08:35 Patient Tobacco Use Status Never used Tobacco 09/24/24 08:35 e-Cigarette/Vaping Use Never Used 09/24/24 08:35 PHQ-9: PHQ-9 Score PHQ-9: Total score 0 09/24/24 08:35 Depression Screening Interpretation: Negative Thrive Assessment: Date of Thrive Assessment Date Thrive assessed 09/01/24 09/24/24 08:35 Const General: cooperative, comfortable, no acute distress and alert Neck Neck: Yes no lymphadenopathy Thyroid: Thyroid normal Resp Effort & Inspection: normal respiratory effort Auscultation: clear to auscultation bilaterally Percussion: percussion normal Cardio Jugular venous distension: no JVD Palpation: normal PMI Rate: regular rate Rhythm: regular rhythm Heart sounds: S1 normal heart sound present and S2 normal heart sound present GI Inspection: Yes normal to inspection Palpation (GI): No hepatosplenomegaly present Skin General skin exam: no rashes or lesions noted Extrem General: Yes no clubbing, cyanosis or edema Coding Level of Care Code Est Pt Level 3 (86550) Diagnoses Rupture of right patellar tendon S86.811A Additional Codes PHQ-9 - 14982 - PHQ-9 Billing: Yes ([id number]) Assessment & Plan Assessment & Plan (1) Rupture of right patellar tendon: Code(s): S86.811A - Strain of other muscle(s) and tendon(s) at lower leg level, right leg, initial encounter Category: Medical Plan: as per surgery; form filled out
[2024-09-24 08:30] VITALS: BP 144/92; PULSE 103; O2SAT 98; BMI 32.0
--- OUTSIDE RECORDS SUMMARY | 2024-09-24 09:05 | XMS_ITS | Continuity of Care Document ---
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 Name Role Phone Jung MEDRANO, Tristin Carvajal Primary Care Physician [id number] Date(s): 09/19/24 - 09/19/[address] [address] Discharge Disposition: A-D/C Home Attending Physician: Mehrdad Perez MD Admitting Physician: Mehrdad Perez MD Referring Physician: Mehrdad Perez MD Encounter Type: Disch Daystay Allergies, Adverse Reactions, Alerts No Known Allergies Medications amLODIPine 10 mg oral tablet 1 tablet = 10 mg, By Mouth, Daily Start Date: 09/09/24 Status: Ordered Repeat number: 1 aspirin 81 mg oral delayed release tablet 81 mg, 1, tablet, By Mouth, Daily, # 30 tablet, Refills 0, Tot. Refills 0, Maintenance, 09/19/24 9:51:00 AM EST, Route to Pharmacy Electronically, [facility], Partial fill upon patient request if the prescription is for a schedule II opioid drug., 180, cm, 08/17/24 21:55:00 EST, Height,99.8, kg, 09/11/24 14:21:00 EST, Dry Weight Start Date: 09/19/24 Stop Date: 10/19/24 Status: Ordered Quantity: 30.0 Unit: tablet Repeat number: 1 hydrochlorothiazide 25 mg oral tablet 25 mg, 1, tablet, By Mouth, Daily Start Date: 09/09/24 Status: Ordered Repeat number: 1 lisinopril 40 mg oral tablet 1 tablet = 40 mg, By Mouth, Daily Start Date: 09/09/24 Status: Ordered Repeat number: 1 MetFORMIN (Eqv-Glucophage XR) 500 mg oral tablet, extended release 2 tablet = 1,000 mg, By Mouth, 2 times a day Start Date: 09/09/24 Status: Ordered Repeat number: 1 oxyCODONE 5 mg oral tablet 5 mg, 1, tablet, By Mouth, Every 4 hours, PRN, # 30 tablet, Refills 0, Tot. Refills 0, Acute 09/26/24 9:52:00 AM EST, as needed for pain, 09/19/24 9:51:00 AM EST, Route to Pharmacy Electronically, [facility], Partial fill upon patient request if the prescription is for a schedule II opioid drug., 180, cm, 08/17/24 21:55:00 EST, Height, 99.8, kg, 09/11/24 14:21:00 EST, Dry Weight Start Date: 09/19/24 Stop Date: 09/26/24 Status: Ordered Quantity: 30.0 Unit: tablet Repeat number: 1 Tylenol 325 mg oral tablet 650 mg, 2, tablet, By Mouth, 4 times a day, PRN, # 120 tablet, Refills 0, Tot. Refills 0, Acute 10/03/24 9:51:00 AM EST, Pain , Mild, 09/19/24 9:50:00 AM EST, Route to Pharmacy Electronically, [facility], Partial fill upon patient request if the prescription is for a schedule II opioid drug., 180, cm, 08/17/24 21:55:00 EST, Height, 99.8, kg, 09/11/24 14:21:00 EST, Dry Weight Start Date: 09/19/24 Stop Date: 10/03/24 Status: Ordered Quantity: 120.0 Unit: tablet Repeat number: 1 Problem List Condition Confirmation Course Effective Dates Status Health St atus Informant Obese class I Confirmed Active Traumatic rupture of right patellar tendon Confirmed Active Results Radiology Reports * Exam Date Time Procedure Performing Provider Status 09/19/24 9:57 AM C-Arm < 1 Hour Diane Zimmer; Auth ( Verified) Notes: (C-Arm < 1 Hour) Reason For Exam: PATELLA FX RESULT: C-Arm < 1 Hour Knee 1 or 2 Views Right, C-Arm < 1 Hour INDICATION: Reason: PATELLA FX COMPARISON: None. TECHNIQUE: Fluoroscopy support was provided. There was no radiologist in attendance. Fluoroscopy time: 11.2 seconds Technologist time: 20 minutes Exposure: 1.02 mGy FINDINGS: Intraoperative fluoroscopy was performed and a single spot film of the right knee was obtained during the procedure. Please refer to the operative note for full details. IMPRESSION: See above. WSN: [id number] Ordering Physician: Mehrdad Perez Dictated By: Bill Barba MD Dictated Date/Time: 09/19/24 4:47 pm Reviewed By: Bill Barba MD Signed By: Bill Barba MD Signed Date/Time: 09/19/24 4:47 pm Transcribed By: WILDER Transcribed Date/Time: 09/19/24 4:46 pm * Exam Date Time Procedure Performing Provider Status 09/19/24 9:57 AM Knee 1 or 2 Views Right J Luis Zimmer; Ravinder (Verified) Notes: (Knee 1 or 2 Views Right) Reason For Exam: PATELLA FX RESULT: Knee 1 or 2 Views Right Knee 1 or 2 Views Right, C-Arm < 1 Hour INDICATION: Reason: PATELLA FX COMPARISON: None. TECHNIQUE: Fluoroscopy support was provided. There was no radiologist in attendance. Fluoroscopy time: 11.2 seconds Technologist time: 20 minutes Exposure: 1.02 mGy FINDINGS: Intraoperative fluoroscopy was performed and a single spot film of the right knee was obtained during the procedure. Please refer to the operative note for full details. IMPRESSION: See above. WSN: [id number] Ordering Physician: Mehrdad Perez Dictated By: Bill Barba MD Dictated Date/Time: 09/19/24 4:47 pm Reviewed By: Bill Barba MD Signed By: Bill Barba MD Signed Date/Time: 09/19/24 4:47 pm Transcribed By: WILDER Transcribed Date/Time: 09/19/24 4:46 pm Vital Signs Most recent to oldest [Reference Range]: 1 2 3 Weight 92.1 kg (09/19/24 6:55 AM) Oxygen Saturation [94-100 %] 99 % (09/19/24 10:45 AM) 96 % (09/19/24 10:36 AM) 96 % (09/19/24 10:34 AM) Pulse Rate [55-90 bpm] 98 bpm *H* (09/19/24 6:55 AM) Blood Pressure [90-138/55-84 mm Hg] 140/93mm Hg *H* (09/19/24 10:45 AM) 132/94mm Hg (09/19/24 10:34 AM) 143/97mm Hg *H* (09/19/24 10:15 AM) Respiratory Rate [16-30 br/min] 14 br/min *L* (09/19/24 10:45 AM) 14 br/min *L* (09/19/24 10:36 AM) 15 br/min *L* (09/19/24 10:34 AM) Temperature [96.8-100.4 DegF] 97.3 DegF (09/19/24 10:45 AM) 98.2 DegF (09/19/24 9:38 AM) 97.6 DegF (09/19/24 6:55 AM) Liters per Minute 2 L/min (09/19/24 10:15 AM) 2 L/min (09/19/24 10:00 AM) 6 L/min (09/19/24 9:45 AM) Mode of Delivery (Oxygen) Room air (09/19/24 10:45 AM) Room air (09/19/24 10:30 AM) Nasal cannula (09/19/24 10:15 AM) Blood pressure sites Arm, right (09/19/24 10:30 AM) Arm, right (09/19/24 10:15 AM) Arm, right (09/19/24 9:45 AM) Temperature Route Temporal (09/19/24 10:45 AM) Temporal (09/19/24 9:38 AM) Temporal (09/19/24 6:55 AM) Weight Obtained Via Standing scale (09/19/24 6:55 AM) Note * Brayan GALVAN, Essie: PERFORM Event Display: Discharge/Transfer Note Hospital Authored Date: [id number] Nursing Discharge Note Entered On: 2024 11:49 EST Performed On: 2024 11:49 EST by Essie Schmidt RN Nursing Discharge Note 2 Discharge Time : 2024 11:48 EST Discharge Level of Care at Discharge : Home/Prison/Foster Care Patient Left Unit Via : Wheelchair Patient Accompanied Off Unit with : Responsible adult DC Instructions Provided & Signed by Pt : Yes Patient Understands D/C Instructions : Yes Verbalized Understanding of D/C Plan By : Patient, Responsible adult Patient Instructions Discharge Signed : Yes Did Pt have Specialty Bed or Wound Vac : No Brayan GALVAN, Essie - 2024 11:49 EST * Loulou Montana RN: PERFORM, MODIFY, MODIFY Event Display: Patient Education/Instruction Authored Date: Surgery Adult Discharge Instructions [address] [address] Name: ISRRAEL MCKENNA : 1970?? Visit: 2024 05:13?? Current Date: 2024 10:13 ?? Account: [id number]?? Surgery Discharge Instructions We would like to thank you for allowing us to assist you with your healthcare needs. The following includes patient education materials and information regarding your injury/illness. Our entire staffstrives to provide an excellent experience for our patients and their families. PLEASE ENSURE YOU FOLLOW-UP PER THE INSTRUCTIONS BELOW! ?? YOUR OPINION IS IMPORTANT TO US! Please complete the survey you may receive by mail or email. Your feedback will be used to make improvements to the healthcare experiences of our patients and their families. Surveys are administered by [employer] ?? If further treatment with your primary care physician or another doctor is recommended, it is important for you to keep the appointment. Call your primary care physician or return to the Emergency Department immediately if your condition worsens, fails to improve, or new symptoms develop. If you need to find a doctor, you can call [facility] for a referral at [phone] or toll free at [phone] or log in to [email or web address].. ?? [facility], in keeping with [facility] guidance, no longer requires face masks for staff, patientsor visitors in most situations. Similiar to time spent indoors at other locations, there is the chance that you were exposed to repiratory viruses during your time with us (such as flu or COVID-19). If you develop symptoms concerning for a viral respiratory infection, please seek testing (and treatment if indicated) from your medical provider or home test kit. ?? You can view and manage your care through the patient portal or by using a health care maanda of your choosing. [employer] is a website that allows you to securely view your medical information including your hospital discharge summary, office visit summaries, medications and follow-up visits. You can also request appointments, renew medications, and request access to your medical information using a health care amanda of your choosing, or just ask a question. You are entitled to know the individuals who participated in your treatment. This information is available within your medical record and will be provided upon your request. You can enroll at [email or web address] or register d uring your next office visit. You have been discharged from [facility], Patient Care Unit: PANU??. If you have any questions regarding these instructions after you leave, please call us and we will be happy to assist you. [facility] Your Care Team Attending Physician Chris MEDRANO, Mehrdad Ang?? Discharging Providers Chris MEDRANO, Mehrdad Ang Reason for Admission RT PATELLA TENDON RUPUREDS Your Diagnosis Traumatic rupture of right patellar tendon Primary Care Provider Jung MEDRANO, Tristin Carvajal? Advance Directive Health Care Proxy on File Yes - Health Care Proxy What to do next Instructions From Your Doctor ?? Orders?? Daystay Protocol, ??When Unit Discharge Criteria Met, ??09/19/24 9:58:00 EST?? Instructions from your Care Team Please leave??dressing on until follow up appointment in clinic. Apply ice/cold pack to surgical area every 2 hrs while awake for 24 hours Please keep splint/dressing clean and dry, elevate operative extremity above??level of the heart asmuch as possible. Reinforce dressing with ABD and los wrap as needed. Call Doctor's office if: Excessive bleeding, swelling, severe pain, fever or vomiting occur. You may bear weight as tolerated (WBAT)??on the operative side. May WBAT with knee immobilizer in place. No driving while taking percocet??or any narcotic pain medication. ?? You Need to Schedule the Following Appointments Follow Up with??Mehrdad Peerz MD When:??Within Beginning of next week Why: Please call Doctor's off to set up a follow up appointment. Where: [address], [address] [facility] [place] [address]- Discharge Medications ISRRAEL MCKENNA :1970 Visit Date:2024 Medications: Please continue your medications until treatment is completed or stopped by your provider. You may resume your daily prescription medications. Discuss any questions related to medications with your provider. What How Much When Instructions Next Dose New Acetaminophen (Tylenol 325 mg oral tablet) 2 tab(s) Oral 4 times a day as needed for Pain , Mild Pickup at [place] [address] 1pm New Aspirin (aspirin 81 mg oral delayed release tablet) 1 tab(s) Oral Daily Duration: 30 Days Pickup at [place] [address] Tomorrow New Oxycodone (oxyCODONE 5 mg oral tablet) 1 tab(s) Oral Every 4 hours as needed for as needed for pain Pickup at [place] [address] as needed Unchanged Amlodipine (amLODIPine 10 mg oral tablet) 1 tab(s) Oral Daily resume as prescribed Unchanged Hydrochlorothiazide (hydrochlorothiazide 25 mg oral tablet) 1 tab(s) Oral Daily resume as prescribed Unchanged Lisinopril (lisinopril 40 mg oral tablet) 1 tab(s) Oral Daily resume as prescribed Unchanged Metformin (MetFORMIN (Eqv-Glucophage XR) 500 mg oral tablet, extended release) 2 tab(s) Oral Twice a day resume as prescribed Pharmacy Information [facility] 3: [address] [place], [place] [phone] Allergies (NKA means No Known Allergies) NKA Education Materials Below is the list of Educational Leaflet Providered with your Discharge Instructions. [employer] Ignite Patient Education - Surgery Medical Daystay Surgical Overnight Discharge Instructions?? Valuables and Belongings I fully understand and agree that [facility] accepts no responsibility for all my personal property including clothing, toilet articles, radios, jewelry, dentures, hearing aids, rings, money, or any other property that is in my possession or is brought to me after admission. I understand certain valuables may be placed in a hospital safe for a short period of time. I understand that the hospital is not liable for loss or damage due to accident, fire, or other natural occurrence while said property is in the safe. I accept full responsibility for any personal property that I keep with me, and will not hold the hospital responsible in case of loss or disappearance. I acknowledge that i have been encouraged to send valuables and belongings home. ?? Review of Valuable and Belonging List: With patient Date for Pt to Sign Valuables/Belongings: 09/19/24 06:55:00 ?? Valuables & Belongings ?? Clothes Electronic devices Jewelry Monetary Items Personal devices Miscellaneous Medications (Valuables) Valuables at Bedside Jacket, Pants, Shirt, Shoes, Undergarments ? Assistive devices, Other: knee immobilizer ? Valuables Sent Home ? Valuables Sent to Security ? Valuables Sent to Locker ? Other Discharge Information ? Pulmonary Rehab Status?? Pulmonary Rehab Discharge Status?? Respiratory Rate:??15 br/min??Low ? Common Emergency Awareness Tips IS IT A STROKE? Act FAST and Check for these signs: FACE Does the face look uneven? ARM Does one arm drift down? SPEECH Does their speech sound strange? TIME Call at any sign of stroke ?? Heart Attack Signs Chest discomfort: Most heart attacks involve discomfort in the center of the chest and lasts more than a few minutes, or goes away and comes back. It can feel like uncomfortable pressure, squeezing, fullness or pain. Discomfort in upper body: Symptoms can include pain or discomfort in one or both arms, back, neck, jaw or stomach. Shortness of breath: With or without discomfort. Other signs: Breaking out in a cold sweat, nausea, or lightheaded. Remember, MINUTES DO MATTER. If you experience any of these heart attack warning signs, call to get immediate medical attention! ?? Smoking can increase your chances of developing chronic health problems and can cause harmful effects to other family members in your house. If you smoke, you are strongly encouraged to quit. Please call [facility] at [phone] or [phone] [place] [address] [phone]) or log in to [email or web address] for referrals to smoking cessation programs. ?? The National Suicide Prevention Hotline is available 05/03 if you or someone you know needs to find a reason to keep living. By calling 6-916-209-akek ([phone]) you'll be connected to a skilled, trained counselor at a crisis center in your area. SURGERY DISCHARGE INSTRUCTIONS SIGNATURE PAGE ISRRAEL MCKENNA Location:[facility] Registration Date and Time:2024 05:13 EST Primary Care Physician: Jung MEDRANO, Tristin Carvajal, Attending Physician: Chris MEDRANO, Mehrdad Ang, I ISRRAEL MCKENNA, have received the above patient education materials/instructions and have verbalized understanding. If ambulance or transport services are being used I further acknowledge being givena choice of service. ?? If you need to contact me, please call me at this number: . Patient/Telehealth Nurse Name: Patient/Telehealth Nurse Signature: Relationship to Patient: Witness Name/Signature: Date: * Loluou Montana RN: PERFORM Event Display: Patient Education Leaflets Authored Date: [id number] Surgery Medical Daystay Surgical Overnight Discharge Instructions ?? 295 Medical Daystay/Surgical Overnight Discharge Instructions ? Since your coordination and judgment may be altered by medication and/or anesthesia, a responsible adult must drive you home from the hospital. ? If you have received medication for pain or sedation while under our care, you should not drive, operate machinery, drink alcohol, or sign any legal documents for 24 hours.?? You should have someone with you at home tonight. ? Remain at home the day of discharge.?? You may be up and about unless otherwise instructed by your physician. ? You may resume your daily prescription medication schedule.?? Any depressant medication should be avoided for 24 hours unless otherwise instructed by your surgeon or anesthesiologist. ? Call your physician for a follow-up appointment.? If you experience unusual or severe pain not relied by your pain medication, excessive bleedingor drainage, persistent nausea and vomiting, excessive swelling or redness, foul odor from incisionsite or fever over 100.6F, you need to call your physician. ? A follow-up phone call by a nurse will be made the day after your procedure.?? If you have stayed with us over night, you will not be receiving a follow-up phone call. ? Nausea and vomiting are a common side effect of prescription pain medication.?? We recommend that pills are not taken on an empty stomach.?? While taking any prescription pain medication you should not drive or drink alcohol. ? Patient Care team information Care Team Personnel Name: Jung MEDRANO, Tristin Carvajal Position: Reference Physician Member Role: PCP Address: [address] [place] [address] Telecom: Care Team Related Persons Name: CRESCENCIO HIDALGO Insurance Providers Guarantor name: PROMISE Health Plan Information #: 1 Payer: [facility] PPO Member Number: [id number] Policy Number: NA Group Number: [id number] Health Plan Information #: 2 Payer: [facility] PPO Member Number: [id number] Policy Number: NA Group Number: [id number]
--- OUTSIDE RECORDS SUMMARY | 2024-09-24 09:05 | XMS_ITS | Continuity of Care Document ---
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 [employer] Name Role Phone Jung MEDRANO, Tristin Carvajal Primary Care Physician Encounter [facility] Date(s): 09/11/24 - 09/11/[address] [address] Discharge Disposition: A-D/C Home Attending Physician: Mehrdad Perez MD Admitting Physician: Mehrdad Perez MD Referring Physician: Mehrdad ePrez MD Encounter Type: Disch Daystay Allergies, Adverse Reactions, Alerts No Known Allergies Medications amLODIPine 10 mg oral tablet 1 tablet = 10 mg, By Mouth, Daily Start Date: 09/09/24 Status: Ordered Repeat number: 1 hydrochlorothiazide 25 mg oral [...] Date: 09/09/24 Status: Ordered Repeat number: 1 Problem List Condition Confirmation Course Effective Dates Status Health St atus Informant Obese class I Confirmed Active Vital Signs Most recent to oldest [Reference Range]: 1 Oxygen Saturation [94-100 %] 99 % (09/11/24 2:21 PM) Pulse Rate [55-90 bpm] 92 bpm *H* (09/11/24 2:21 PM) Blood Pressure [90-138/55-84 mm Hg] 129/ 94mm Hg (09/11/24 2:21 PM) Respiratory Rate [16-30 br/min] 17 br/mi n (09/11/24 2:21 PM) Temperature [96.8-100.4 DegF] 97.6 DegF (09/11/24 2:21 PM) Mode of Delivery (Oxygen) Room air (09/11/24 2:21 PM) Blood pressure sites Arm, left (09/11/24 2:21 PM) Temperature Route Temporal (09/11/24 2:21 PM) Dry Weight 99.8 kg (09/11/24 2:21 PM) Dry Weight Obtained Via Standing scale (09/11/24 2:21 PM) History and physical note * Event Display: History and Physical Hospital Authored Date: * Event Display: History and Physical Hospital Authored Date: Hospital Progress note * Chris MEDRANO, Mehrdad Ang: PERFORM Event Display: Progress Note Hospital Authored Date: Patient: ??ISRRAEL MCKENNA ? Age:??53 Years?Sex:??Male?:??1970?? 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
== END 2024-09-24 08:45 | disposition home or self-care (01) ==
PROVIDERS: PCP Internal Medicine; Visit Provider Internal Medicine
DX: S86.811A Strain of other muscle(s) and tendon(s) at lower leg level, right leg, initial encounter (principal)

== ENCOUNTER → 2024-09-24 08:26 | Outpatient (BNVA) | payer OTHER, SELFPAY | PROVIDERS: PCP Internal Medicine; Visit Provider Internal Medicine | DX: S86.811D Strain of other muscle(s) and tendon(s) at lower leg level, right leg, subsequent encounter (principal) | CPT/HCPCS: 96127 ==

== ENCOUNTER 2024-12-22 13:16 | Outpatient (AMB) | payer OTHER, SELFPAY ==
--- NOTE | 2024-12-22 13:33 | MHC.PC.OV ---
Vital Signs 12/22/24 13:34 Height 5 ft 9 in Weight 223 lb 6 oz BMI 33.0 BP 130/80 Blood Pressure Location Lt brachial Position Sitting Pulse 114 H Pulse Source Pulse Oximeter Temp 97.1 F Temp Source Temporal Artery Scan Pulse Oximetry (%) 96 Oxygen Delivery Method Room Air Intake Visit Reasons: HANK Yangner/3 mo follow up Intake Note: Patient is here today for HANK from Dr Feng and Modria f/u. 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 Required: No Lens Gauger: Not Required per policy Accompanied by: Self / Same As Patient Allergies No Known Allergies Allergy (Verified 12/22/24 13:45) seasonal Allergy (Unknown, Uncoded 12/22/24 13:45) Unknown Medication List - Last Reconciled 12/22/24 by GERMANIA Trent amlodipine 10 mg PO DAILY gabapentin 300 mg PO TID hydrochlorothiazide 25 mg PO DAILY lisinopril 40 mg PO DAILY metformin ER 1,000 mg (2 x 500 mg) PO BID Tobacco use date assessed: 12/22/24 Dental Screening Dental Screen Date: 09/24/24 HPI HANK Jung/3 mo follow up HPI Details Patient is a 54-year-old male with significant past medical history of diabetes mellitus, hypertension, obesity. Former patient of Dr. Feng who retired. Presenting for transition of care. Presenting with post-operative knee pain and elevated blood glucose levels. Following surgery in August to address a patellar injury, the patient has experienced significant knee pain, inhibiting his mobility and contributing to muscle atrophy. As a result, his usual physical activity has ceased, impacting his overall glycemic control. The patient's previously stable A1c levels, managed with metformin, have risen to 9%. He also reports depressive symptoms associated with his post-surgery recovery process and current gabapentin regimen of 300mg TID has been making him sleepy. The patient has experienced cognitive impairments and lessened motivation, hindering daily activities and reducing compliance with his diabetes medication schedule, which he attributed to gabapentin. He aims to speak with his orthopedic surgeon about adjusting his gabapentin dosage. Moreover, discussions regarding the addition of a secondary agent (jardiance) to his diabetes therapy were initiated, addressing both cardiovascular protection and glucose management. [facility] Medical History Obesity Diabetes mellitus with coincident hypertension Type 2 diabetes mellitus without complications Surgical History History of right knee surgery Family History Father No problems noted. Mother Stroke Hypertension Cancer Brother Substance use disorder Social History Housing: House Alcohol intake: current Alcohol intake frequency: holidays/special occasions only Patient Tobacco Use Status: Never used Tobacco e-Cigarette/Vaping Use: Never Used Second Hand Smoke Exposure: No service: No Current occupational status: employed Cognitive needs: No Hearing needs: No Vision needs: No Questionnaire PHQ-9 Over the last 2 weeks, how often have you been bothered by any of the following problems? 1. Little interest or pleasure in doing things: not at all 2. Feeling down, depressed, or hopeless: more than half the days 3. Trouble falling or staying asleep, or sleeping too much: not at all 4. Feeling tired or having little energy: not at all 5. Poor appetite or overeating: not at all 6. Feeling bad about yourself - or that you are a failure or have let yourself or your family down: more than half the days 7. Trouble concentrating on things, such as reading the newspaper or watching television: not at all 8. Moving or speaking so slowly that other people could have noticed. Or the opposite - being so fidgety or restless that you have been moving around a lot more than usual: not at all 9. Thoughts that you would be better off or of hurting yourself in some way: not at all Total score: 4 Depression Screening Interpretation: Positive Depression Screening Done: Yes Source: Developed by Drs. Otto Bhatt, Esha Valera, Fareed Wynn and colleagues, with an educational juan from [employer] Thrive Questionnaire Date Thrive assessed: 12/22/24 I am a: Patient What is your living situation today?: I have a steady place to live Within the past 12 months, did the food you bought not last and you didn't have the money to get more?: I choose not to answer this question Within the past 12 months, did you worry whether your food would run out before you got money to buy more?: Never true Do you have trouble paying for medicines?: No Do you have trouble getting transportation to medical appointments?: No Do you have trouble paying your heating and electricity bill?: No Do you have trouble taking care of your child, family member or friend?: No Do you have trouble with day-to-day activities such as bathing, preparing meals, shopping, managing finances, etc.?: No Are you currently unemployed and looking for a job?: No Are you interested in more education?: No Please select the resources that you would like help with: None Currently or been in a relationship where the following occur: I choose not to answer THRIVE Score: 0 AUDIT C Alcohol Use Questionnaire (AUDIT-C) 1. How often do you have a drink containing alcohol?: 2-4 times a month Total Score: 2 NIDHI-7 AMB Questionnaire NIDHI-7 Date NIDHI - 7 assessed: 12/22/24 Feeling nervous, anxious, or on edge: 2 = More than half the days Not being able to stop or control worryin = More than half the days Worrying too much about different things: 2 = More than half the days Trouble relaxin = More than half the days Being so restless that it is hard to sit still: 0 = Not at all Becoming easily annoyed or irritable: 0 = Not at all Feeling afraid as if something awful might happen: 0 = Not at all Total NIDHI-7 score (0-4 normal; 5-9 mild; 10-14 moderate; 15-21 severe): 8 Source: Developed by Drs. Otto Bhatt, Esha Valera, Fareed Wynn and colleagues, with an educational juan from [employer] Review of Systems Const Denies headache(s) and Reports lethargy (Attributed to gabapentin tx) Eyes Denies loss of vision ENT Denies vertigo, Denies dizziness, Denies headache(s) and Denies sore throat Card Denies chest pain, Denies leg edema and Denies lightheadedness Resp Denies cough, Denies hemoptysis and Denies wheezing GI Denies abdominal pain, Denies melena, Denies constipation, Denies diarrhea and Denies vomiting Denies dysuria, Denies urinary frequency and Denies urinary urgency Musc Reports arthralgias (Right knee), Reports joint swelling (Right knee), Denies numbness and Denies tingling Neuro Denies Abnormal speech present, Denies behavioral changes, Denies vertigo, Denies dizziness, Denies headache(s), Denies loss of vision, Denies memory loss, Denies numbness and Denies tingling Psych Denies anxiety, Denies behavioral changes, Reports depression (Related to healing process), Denies memory loss and Denies panic attacks Anjum/Lymph Denies easy bleeding and Denies easy bruising Aller/Immun Denies wheezing Physical exam (Primary Care) Vital Signs: Last Vital Signs Temp 97.1 F 12/22/24 13:34 Pulse 114 H 12/22/24 13:34 BP 130/80 12/22/24 13:34 Pulse Ox 96 12/22/24 13:34 Oxygen Delivery Method Room Air 12/22/24 13:34 BMI result Body Mass Index 33.0 Tobacco/Smoking Status: Tobacco use Status Tobacco use date assessed 12/22/24 12/22/24 13:42 Patient Tobacco Use Status Never used Tobacco 12/22/24 13:42 e-Cigarette/Vaping Use Never Used 12/22/24 13:42 PHQ-9: PHQ-9 Score PHQ-9: Total score 4 12/22/24 20:05 Depression Screening Interpretation: Positive Thrive Assessment: Date of Thrive Assessment Date Thrive assessed 12/22/24 12/22/24 13:42 Currently or been in a relationship where the following occur: I choose not to answer Const General: healthy appearing, no acute distress, alert and awake Nutritional Appearance: well nourished Orientation/consciousness: oriented to person, oriented to place and oriented to time [facility] Ears: TM's normal bilaterally General nose exam: Normal nasal mucous membranes and turbinates present Eyes Conjunctivae: conjunctivae normal Sclerae: sclerae normal Pupils: Equal, round and reactive pupils present Neck Neck: Yes no lymphadenopathy and Yes no JVD Thyroid: Thyroid normal Carotids: no bruits Resp Effort & Inspection: normal respiratory effort and not tachypneic Auscultation: no crackles, no rales, no rhonchi and no wheezes Cardio Rate: tachycardic (Pain driven) Rhythm: regular rhythm Heart sounds: no murmurs and normal S1 and S2 GI Palpation (GI): Soft to palpation, nontender, no hepatomegaly and no splenomegaly Auscultation: normal bowel sounds Skin General skin exam: no rashes or lesions noted and dry skin Neuro General: oriented to person, oriented to place and oriented to time Cranial nerves: Yes Equal, round and reactive pupils present Speech: No Abnormal speech present Gait exam (Neuro): Assistive device used (Cane) Extrem Right upper extremity: full ROM Left upper extremity: full ROM Right lower extremity: full ROM and knee Details: tenderness and swelling (Status post surgery) Location: of the pre-patellar area Left lower extremity: full ROM; no edema Psych Mental Status: mental status grossly normal Speech and movement: Normal speech and movement present Affect: normal affect Attitude: cooperative Thought process: Normal thought process present Results AMB Hemoglobin A1c AMB Hemoglobin A1c 9.0 % Last Edit by ZI Pritchett on 12/22/24 13:45 Results Reviewed Results Reviewed: Laboratory Last Values Hgb A1c (Clinic) 9.0 % (4.0-6.0) H 12/22/24 13:31 Coding Level of Care Code Est Pt Level 4 (68558) Diagnoses Diabetes mellitus with coincident hypertension E11.9; I10 Hypertension, unspecified type I10 Hypertension type: unspecified Class 1 obesity with serious comorbidity and body mass index (BMI) of 33.0 to 33.9 in adult, unspecified obesity type E66.811; Z68.33 Obesity type: unspecified obesity type Obesity classification: adult class 1 (BMI 30 - 34.9) Serious obesity comorbidity presence: with serious comorbidity Body mass index: BMI 33.0-33.9 Rupture of right patellar tendon, subsequent encounter S86.811D Encounter type: subsequent encounter Elevated ALT measurement R74.01 Pure hypercholesterolemia E78.00 Time Spent (min) 38 Assessment & Plan Assessment & Plan (1) Diabetes mellitus with coincident hypertension: Code(s): E11.9 - Type 2 diabetes mellitus without complications; I10 - Essential (primary) hypertension Category: Medical (2) Hypertension: Code(s): I10 - Essential (primary) hypertension Category: Medical Qualifiers: Hypertension type: unspecified Qualified Code(s): I10 - Essential (primary) hypertension (3) Obesity: Code(s): E66.9 - Obesity, unspecified Category: Medical Qualifiers: Obesity type: unspecified obesity type Obesity classification: adult class 1 (BMI 30 - 34.9) Serious obesity comorbidity presence: with serious comorbidity Body mass index: BMI 33.0-33.9 Qualified Code(s): E66.811 - Obesity, class 1; Z68.33 - Body mass index [BMI] 33.0-33.9, adult (4) Rupture of right patellar tendon: Code(s): S86.811A - Strain of other muscle(s) and tendon(s) at lower leg level, right leg, initial encounter Category: Medical Qualifiers: Encounter type: subsequent encounter Qualified Code(s): S86.811D - Strain of other muscle(s) and tendon(s) at lower leg level, right leg, subsequent encounter (5) Elevated ALT measurement: Code(s): R74.01 - Elevation of levels of liver transaminase levels Category: Medical (6) Pure hypercholesterolemia: Code(s): E78.00 - Pure hypercholesterolemia, unspecified Category: Medical Plan I addressed the patient?s elevated blood glucose levels by prescribing Jardiance, beneficial for glucose management and cardiovascular health. Adjustments to the patient?s current gabapentin dosage will be explored to alleviate depressive and cognitive effects; following up with orthopedics tomorrow. Continuous monitoring and adjustments to his diabetes treatment plan, including the addition of a supplementary agent, are to be implemented. Overall, the patient should focus on a graded return to physical activity as tolerated to improve his health outcomes. Reinforced dash diet, continue hydrochlorothiazide 25 mg daily, lisinopril 40 mg daily, and amlodipine 10 mg daily The patient heart rate is increased at 114, suspected pain related Patient A1c went from 8.7% to 9% since May of 2024, reinforced low sugar/carbohydrate diet and activity as tolerated ALT slightly elevated at 52, refrain from excessive use of alcohol or Tylenol; informed the patient that increase weight and high cholesterol can elevate his liver enzymes as well, so diet and exercise can help decrease this number as well. The patient is in a lot of pain at this time and is unable to be as active as he is used to. LDL slightly elevated at 102 on prior labs, above plan we will help to decrease this as well. Patient was informed and verbally consented to the use of an ambient scribe for clinic note documentation during this visit. Orders: Orders Lipid Panel 3 Months E11.9 - Type 2 diabetes mellitus without complications, E66.9 - Obesity, unspecified, I10 - Essential (primary) hypertension TSH reflex Free T4 3 Months E11.9 - Type 2 diabetes mellitus without complications, E66.9 - Obesity, unspecified, I10 - Essential (primary) hypertension UA CC w/rflx Micro + Cult 3 Months E11.9 - Type 2 diabetes mellitus without complications, E66.9 - Obesity, unspecified, I10 - Essential (primary) hypertension Vitamin D 25-OH Total 3 Months E11.9 - Type 2 diabetes mellitus without complications, E66.9 - Obesity, unspecified, I10 - Essential (primary) hypertension Hemoglobin A1c 3 Months E11.9 - Type 2 diabetes mellitus without complications, E66.9 - Obesity, unspecified, I10 - Essential (primary) hypertension Microalbumin, Random (w Creat) 3 Months E11.9 - Type 2 diabetes mellitus without complications, E66.9 - Obesity, unspecified, I10 - Essential (primary) hypertension AMB Hemoglobin A1c 12/22/24 E11.9 - Type 2 diabetes mellitus without complications, I10 - Essential (primary) hypertension Complete Blood Count Auto Diff 3 Months E11.9 - Type 2 diabetes mellitus without complications, E66.9 - Obesity, unspecified, I10 - Essential (primary) hypertension Comprehensive [place]. Panel Fast 3 Months E11.9 - Type 2 diabetes mellitus without complications, E66.9 - Obesity, unspecified, I10 - Essential (primary) hypertension Medications: New empagliflozin (Jardiance) 25 mg PO DAILY 90 tabs 3RF E11.9 - Type 2 diabetes mellitus without complications, I10 - Essential (primary) hypertension
[2024-12-22 13:34] VITALS: BP 130/80; PULSE 114; TEMP 36.2; O2SAT 96; BMI 33.0
== END 2024-12-22 14:13 | disposition home or self-care (01) ==
LOC: HO.HMCH 13:17
DX: E11.9 Type 2 diabetes mellitus without complications (principal); I10 Essential (primary) hypertension

== ENCOUNTER → 2024-12-22 13:16 | Outpatient (BNVA) | payer OTHER, SELFPAY | DX: E11.9 Type 2 diabetes mellitus without complications (principal); I10 Essential (primary) hypertension; E66.811 Obesity, class 1; Z68.33 Body mass index [BMI] 33.0-33.9, adult; S86.811D Strain of other muscle(s) and tendon(s) at lower leg level, right leg, subsequent encounter; R74.01 Elevation of levels of liver transaminase levels; E78.00 Pure hypercholesterolemia, unspecified; Z79.899 Other long term (current) drug therapy | CPT/HCPCS: 83036; 96127 ==

== ENCOUNTER 2025-03-25 08:43 | Outpatient (AMB) | payer OTHER, SELFPAY ==
--- NOTE | 2025-03-25 09:02 | A.OFFPC_ITS ---
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 Accompanied by: Self / Same As Patient Allergies No Known Allergies Allergy (Verified 03/25/25 09:09) seasonal Allergy (Unknown, Uncoded 03/25/25 09:09) Unknown Medication List - Last Reconciled 03/25/25 by GERMANIA Trent amlodipine 10 mg PO DAILY empagliflozin (Jardiance) 25 mg PO DAILY gabapentin 300 mg PO TID hydrochlorothiazide 25 mg PO DAILY lisinopril 40 mg PO DAILY metformin ER 1,000 mg (2 x 500 mg) PO BID Tobacco use date assessed: 03/25/25 Dental Screening Dental Screen Date: 03/25/25 Did you have a dental visit in the last 12 months?: No Did you have a dental problem in the last 6 months where you did not have access to dental care?: No Was dental information given to patient?: No HPI MD/HTN HPI Details The patient is a 54-year-old male presenting with concerns related to keloid formation at an incision site of right knee and management of diabetes mellitus and HTN. The keloid formation developed post-surgery of right knee patellar tendon rupture, causing swelling when rubbed, necessitating consultation with a plastic surgeon. The patient is currently unable to work due to this condition and is awaiting a specialist appointment. The patient has a history of diabetes mellitus, with a recent hemoglobin A1c level of 8.3%, down from a previous level of 9%. He reports difficulty managing his condition due to recent stress and lifestyle changes, including selling a property and managing two mortgages. The patient also has a history of hypertension, although his blood pressure was noted to be higher than usual due to lack of sleep and recent stress. He has been experiencing increased urination, which he attributes to increased water intake and his diabetes management. Preventative care measures include a referral for a colonoscopy, which was previously delayed due to scheduling conflicts. [facility] Medical History Obesity Diabetes mellitus with coincident hypertension Type 2 diabetes mellitus without complications Surgical History History of right knee surgery Family History Father No problems noted. Mother Stroke Hypertension Cancer Brother Substance use disorder Social History Housing: House Alcohol intake: current Alcohol intake frequency: holidays/special occasions o nly Patient Tobacco Use Status: Never used Tobacco e-Cigarette/Vaping Use: Never Used Second Hand Smoke Exposure: No service: No Current occupational status: employed Cognitive needs: No Hearing needs: No Vision needs: No Questionnaire Thrive Questionnaire Date Thrive assessed: 03/25/25 I am a: Patient What is your living situation today?: I have a steady place to live Within the past 12 months, did the food you bought not last and you didn't have the money to get more?: I choose not to answer this question Within the past 12 months, did you worry whether your food would run out before you got money to buy more?: Never true Do you have trouble paying for medicines?: No Do you have trouble getting transportation to medical appointments?: No Do you have trouble paying your heating and electricity bill?: No Do you have trouble taking care of your child, family member or friend?: No Do you have trouble with day-to-day activities such as bathing, preparing meals, shopping, managing finances, etc.?: No Are you currently unemployed and looking for a job?: No Are you interested in more education?: No Please select the resources that you would like help with: None Currently or been in a relationship where the following occur: I choose not to answer THRIVE Score: 0 NIDHI-7 AMB Questionnaire NIDHI-7 Date NIDHI - 7 assessed: 03/25/25 Source: Developed by Drs. Otto Bhatt, Esha Valera, Fareed Wynn and colleagues, with an educational juan from [employer]. Review of Systems Const Denies headache(s) Eyes Denies loss of vision ENT Denies vertigo, Denies dizziness, Denies headache(s) and Denies sore throat Card Denies chest pain, Denies leg edema and Denies lightheadedness Resp Denies cough, Denies hemoptysis and Denies wheezing GI Denies abdominal pain, Denies melena, Denies constipation, Denies diarrhea and Denies vomiting Denies dysuria, Reports urinary frequency (due to increased fluids and elevated blood sugars) and Denies urinary urgency Musc Reports arthralgias (right knee (patellar tendon rupture) s/p surgery), Denies joint swelling, Denies numbness and Denies tingling Neuro Denies Abnormal speech present, Denies behavioral changes, Denies vertigo, Denies dizziness, Denies headache(s), Denies loss of vision, Denies memory loss, Denies numbness and Denies tingling Psych Denies anxiety, Denies behavioral changes, Denies depression, Denies memory loss and Denies panic attacks Anjum/Lymph Denies easy bleeding and Denies easy bruising Aller/Immun Denies wheezing Physical exam (Primary Care) Tobacco/Smoking Status: Tobacco use Status Tobacco use date assessed 12/22/24 12/22/24 13:42 Patient Tobacco Use Status Never used Tobacco 12/22/24 13:42 e-Cigarette/Vaping Use Never Used 12/22/24 13:42 Thrive Assessment: Date of Thrive Assessment Date Thrive assessed 12/22/24 12/22/24 13:42 Currently or been in a relationship where the following occur: I choose not to answer Const General: healthy appearing, no acute distress, alert and awake Nutritional Appearance: well nourished Orientation/consciousness: oriented to person, oriented to place and oriented to time HENMT Ears: TM's normal bilaterally General nose exam: Normal nasal mucous membranes and turbinates present Eyes Conjunctivae: conjunctivae normal Sclerae: sclerae normal Pupils: Equal, round and reactive pupils present Neck Neck: Yes no lymphadenopathy and Yes no JVD Thyroid: Thyroid normal Carotids: no bruits Resp Effort & Inspection: normal respiratory effort and not tachypneic Auscultation: no crackles, no rales, no rhonchi and no wheezes Cardio Rate: regular rate Rhythm: regular rhythm Heart sounds: no murmurs and normal S1 and S2 GI Palpation (GI): Soft to palpation, nontender, no hepatomegaly and no splenomegaly Auscultation: normal bowel sounds Skin General skin exam: no rashes or lesions noted and dry skin Neuro General: oriented to person, oriented to place and oriented to time Cranial nerves: Yes Equal, round and reactive pupils present Speech: No Abnormal speech present Gait exam (Neuro): Normal gait present Motor exam (neuro): no tremor noted Extrem Right upper extremity: full ROM Left upper extremity: full ROM Right lower extremity: full ROM and knee Details: tenderness Location: of the patella (middle of patella incision line) and swelling (mild swelling); no edema Left lower extremity: full ROM; no edema Psych Mental Status: mental status grossly normal Speech and movement: Normal speech and movement present Affect: normal affect Attitude: cooperative Thought process: Normal thought process present Coding Level of Care Code Est Pt Level 4 (88759) Diagnoses Diabetes mellitus with coincident hypertension E11.9; I10 Hypertension, unspecified type I10 Hypertension type: unspecified Class 1 obesity with serious comorbidity and body mass index (BMI) of 33.0 to 33.9 in adult, unspecified obesity type E66.811; Z68.33 Obesity type: unspecified obesity type Obesity classification: adult class 1 (BMI 30 - 34.9) Serious obesity comorbidity presence: with serious comorbidity Body mass index: BMI 33.0-33.9 Rupture of right patellar tendon, subsequent encounter S86.811D Encounter type: subsequent encounter Elevated ALT measurement R74.01 Mixed hyperlipidemia E78.2 Hyperlipidemia type: mixed hyperlipidemia Time Spent (min) 39 Assessment & Plan Assessment & Plan (1) Diabetes mellitus with coincident hypertension: Code(s): E11.9 - Type 2 diabetes mellitus without complications; I10 - Essential (primary) hypertension Category: Medical Plan: A1c 8.3% came down from 9%- Previous visit Jardiance 25mg was added Reinforced low sugar/carbohydrate diet We will recheck he fasting glucose and A1c in 3 months (2) Hypertension: Code(s): I10 - Essential (primary) hypertension Category: Medical Qualifiers: Hypertension type: unspecified Qualified Code(s): I10 - Essential (primary) hypertension Plan: Blood pressure 130/90-goal is 130/84 mmgh Reinforced low-salt diet Continue lisinopril 40 mg daily, hydrochlorothiazide 25 mg daily, and amlodipine 10 mg daily (3) Obesity: Code(s): E66.9 - Obesity, unspecified Category: Medical Qualifiers: Obesity type: unspecified obesity type Obesity classification: adult class 1 (BMI 30 - 34.9) Serious obesity comorbidity presence: with serious comorbidity Body mass index: BMI 33.0-33.9 Qualified Code(s): E66.811 - Obesity, class 1; Z68.33 - Body mass index [BMI] 33.0-33.9, adult Plan: Encouraged to exercise for at least 30 minutes a day/5 days a week Healthy eating discussed. Encouraged to eat fruits/vegetables, protein- fish/baked chicken, and to avoid salty/fried foods, sweets, caffeine and carbohydrates. Encouraged to increase water intake 6-8 glasses a day (4) Rupture of right patellar tendon: Code(s): S86.811A - Strain of other muscle(s) and tendon(s) at lower leg level, right leg, initial encounter Category: Medical Qualifiers: Encounter type: subsequent encounter Qualified Code(s): S86.811D - Strain of other muscle(s) and tendon(s) at lower leg level, right leg, subsequent encounter Plan: Status post surgery. Right knee developed a keloid in the center of patellar. This is causing discomfort when it is abrupt against anything. Patient has plans to see plastic surgeon and he is being followed by [facility]. He is ambulating with a cane and his pain has been controlled on his current regimen. (5) Elevated ALT measurement: Code(s): R74.01 - Elevation of levels of liver transaminase levels Category: Medical Plan: Liver enzymes within normal limits Continue limiting or avoiding alcohol or medication containing acetaminophen We will recheck CMP in 3 months (6) HLD (hyperlipidemia): Code(s): E78.5 - Hyperlipidemia, unspecified Category: Medical Qualifiers: Hyperlipidemia type: mixed hyperlipidemia Qualified Code(s): E78.2 - Mixed hyperlipidemia Plan: Triglycerides 158, total cholesterol 177, LDL 97, HDL 53 Discussed lifestyle modifications including dietary changes and physical activity Orders: Orders Complete Blood Count Auto Diff 3 Months E11.9 - Type 2 diabetes mellitus without complications, E66.811 - Obesity, class 1, E78.00 - Pure hyper cholesterolemia, unspecified, I10 - Essential (primary) hypertension, R74.01 - Elevation of levels of liver transaminase levels, S86.811D - Strain of other muscle(s) and tendon(s) at lower leg level, right leg, subsequent encounter, Z68.33 - Body mass index [BMI] 33.0-33.9, adult Lipid Panel 3 Months E11.9 - Type 2 diabetes mellitus without complications, E66.811 - Obesity, class 1, E78.00 - Pure hypercholesterolemia, unspecified, I10 - Essential (primary) hypertension, R74.01 - Elevation of levels of liver transaminase levels, S86.811D - Strain of other muscle(s) and tendon(s) at lower leg level, right leg, subsequent encounter, Z68.33 - Body mass index [BMI] 33.0-33.9, adult TSH reflex Free T4 3 Months E11.9 - Type 2 diabetes mellitus without complications, E66.811 - Obesity, class 1, E78.00 - Pure hypercholesterolemia, unspecified, I10 - Essential (primary) hypertension, R74.01 - Elevation of levels of liver transaminase levels, S86.811D - Strain of other muscle(s) and tendon(s) at lower leg level, right leg, subsequent encounter, Z68.33 - Body mass index [BMI] 33.0-33.9, adult Vitamin D 25-OH Total 3 Months E11.9 - Type 2 diabetes mellitus without complications, E66.811 - Obesity, class 1, E78.00 - Pure hypercholesterolemia, unspecified, I10 - Essential (primary) hypertension, R74.01 - Elevation of levels of liver transaminase levels, S86.811D - Strain of other muscle(s) and tendon(s) at lower leg level, right leg, subsequent encounter, Z68.33 - Body mass index [BMI] 33.0-33.9, adult Comprehensive [place]. Panel Fast 3 Months E11.9 - Type 2 diabetes mellitus without complications, E66.811 - Obesity, class 1, E78.00 - Pure hypercholesterolemia, unspecified, I10 - Essential (primary) hypertension, R74.01 - Elevation of levels of liver transaminase levels, S86.811D - Strain of other muscle(s) and tendon(s) at lower leg level, right leg, subsequent encounter, Z68.33 - Body mass index [BMI] 33.0-33.9, adult UA CC w/rflx Micro + Cult 3 Months E11.9 - Type 2 diabetes mellitus without complications, E66.811 - Obesity, class 1, E78.00 - Pure hypercholesterolemia, unspecified, I10 - Essential (primary) hypertension, R74.01 - Elevation of levels of liver transaminase levels, S86.811D - Strain of other muscle(s) and tendon(s) at lower leg level, right leg, subsequent encounter, Z68.33 - Body mass index [BMI] 33.0-33.9, adult Hemoglobin A1c 3 Months E11.9 - Type 2 diabetes mellitus without complications, E66.811 - Obesity, class 1, E78.00 - Pure hypercholesterolemia, unspecified, I10 - Essential (primary) hypertension, R74.01 - Elevation of levels of liver transaminase levels, S86.811D - Strain of other muscle(s) and tendon(s) at lower leg level, right leg, subsequent encounter, Z68.33 - Body mass index [BMI] 33.0-33.9, adult Referrals Gastroenterology Referral Z12.11 - Encounter for screening for malignant neoplasm of colon, Z12.12 - Encounter for screening for malignant neoplasm of rectum
[2025-03-25 09:03] VITALS: BP 130/90; PULSE 78; O2SAT 98; BMI 32.8
== END 2025-03-25 09:34 | disposition home or self-care (01) ==
LOC: HO.HMCH 08:44
DX: E11.9 Type 2 diabetes mellitus without complications (principal); I10 Essential (primary) hypertension; E66.811 Obesity, class 1; Z68.33 Body mass index [BMI] 33.0-33.9, adult; S86.811D Strain of other muscle(s) and tendon(s) at lower leg level, right leg, subsequent encounter; R74.01 Elevation of levels of liver transaminase levels; E78.2 Mixed hyperlipidemia

== ENCOUNTER → 2025-03-25 08:43 | Outpatient (BNVA) | payer OTHER, SELFPAY | DX: E11.9 Type 2 diabetes mellitus without complications (principal); R74.01 Elevation of levels of liver transaminase levels; E78.2 Mixed hyperlipidemia; E66.811 Obesity, class 1; S86.811D Strain of other muscle(s) and tendon(s) at lower leg level, right leg, subsequent encounter; X58.XXXD Exposure to other specified factors, subsequent encounter; Z68.33 Body mass index [BMI] 33.0-33.9, adult | CPT/HCPCS: 99212 ==

== ENCOUNTER 2025-06-02 13:16 | Outpatient (AMB) | payer OTHER, SELFPAY ==
--- NOTE | 2025-06-02 13:27 | MHC.PC.OV ---
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 Accompanied by: Self / Same As Patient Allergies No Known Allergies Allergy (Verified 06/02/25 13:29) seasonal Allergy (Unknown, Uncoded 03/25/25 09:09) Unknown Medication List - Last Reconciled 06/02/25 by Kelly Marte MD amlodipine 10 mg PO DAILY empagliflozin (Jardiance) 25 mg PO DAILY gabapentin 300 mg PO TID hydrochlorothiazide 25 mg PO DAILY lisinopril 40 mg PO DAILY metformin ER 1,000 mg (2 x 500 mg) PO BID Tobacco use date assessed: 06/02/25 Dental Screening Dental Screen Date: 06/02/25 Did you have a dental visit in the last 12 months?: Yes Did you have a dental problem in the last 6 months where you did not have access to dental care?: No Was dental information given to patient?: Patient has dentist HPI HPI Comments History of Present Illness Details The patient is a 54-year-old male presenting with complications related to a patellar injury and subsequent keloid formation. The patient was referred to a funeral home assistant due to the keloid formation over the patella, which was exacerbated by physical activity such as cycling. The funeral home assistant suggested steroid injections as a treatment option, but the patient expressed concerns about potential side effects and the possibility of worsening the condition. The patient has been out of work since August and is experiencing financial difficulties due to ongoing medical expenses and lack of income. He expressed frustration with the disability process and the financial burden of treatment, including the cost of dermatological consultations and potential radiation therapy for the keloid. [facility] Medical History Obesity Diabetes mellitus with coincident hypertension Type 2 diabetes mellitus without complications Surgical History History of right knee surgery Family History Father No problems noted. Mother Stroke Hypertension Cancer Brother Substance use disorder Social History Housing: House Alcohol intake: current Alcohol intake frequency: holidays/special occasions only Patient Tobacco Use Status: Never used Tobacco e-Cigarette/Vaping Use: Never Used Second Hand Smoke Exposure: No service: No Current occupational status: employed Cognitive needs: No Hearing needs: No Vision needs: No Questionnaire Thrive Questionnaire Date Thrive assessed: 12/22/24 I am a: Patient What is your living situation today?: I have a steady place to live Within the past 12 months, did the food you bought not last and you didn't have the money to get more?: I choose not to answer this question Within the past 12 months, did you worry whether your food would run out before you got money to buy more?: Never true Do you have trouble paying for medicines?: No Do you have trouble getting transportation to medical appointments?: No Do you have trouble paying your heating and electricity bill?: No Do you have trouble taking care of your child, family member or friend?: No Do you have trouble with day-to-day activities such as bathing, preparing meals, shopping, managing finances, etc.?: No Are you currently unemployed and looking for a job?: No Are you interested in more education?: No Please select the resources that you would like help with: None Currently or been in a relationship where the following occur: I choose not to answer THRIVE Score: 0 NIDHI-7 AMB Questionnaire NIDHI-7 Date NIDHI - 7 assessed: 03/25/25 Source: Developed by Drs. Otto Bhatt, Esha Valera, Fareed Wynn and colleagues, with an educational juan from [employer]. Review of Systems Const Details: Not done Physical exam (Primary Care) Vital Signs: Last Vital Signs Temp 97.1 F 06/02/25 13:28 Pulse 109 H 06/02/25 13:28 Resp 18 06/02/25 13:28 Pulse Ox 97 06/02/25 13:28 Oxygen Delivery Method Room Air 06/02/25 13:28 BMI result Body Mass Index 32.8 Tobacco/Smoking Status: Tobacco use Status Tobacco use date assessed 06/02/25 06/02/25 13:42 Patient Tobacco Use Status Never used Tobacco 06/02/25 13:28 e-Cigarette/Vaping Use Never Used 06/02/25 13:28 Thrive Assessment: Date of Thrive Assessment Date Thrive assessed 12/22/24 06/02/25 13:28 Currently or been in a relationship where the following occur: I choose not to answer Const Other: Pertinent findings are in BOLD GENERAL APPEARANCE NAD, activity normal for age, well developed/ well nourished, no cyanosis, pallor, or diaphoresis. EYES lids/conjunctiva normal. EARS/NOSE/THROAT Mucous membranes moist, nares normal, lips/teeth normal uvula midline without oral pharyngeal erythema, exudate or swelling TMs normal bilaterally. No lymphangitis/lymphedema. HEAD/NECK normocephalic atraumatic, no facial trauma, neck is supple. RESPIRATORY respiratory effort normal, speaks in full sentences, no tripod position, no accessory muscle use. Lungs clear to auscultation without rhonchi, wheezes, rales CARDIAC Regular rate and rhythm, no edema. ABDOMINAL Soft, ND/NT. No evidence of fluid wave. No pulsatile masses on exam, rebound tenderness, Ingram sign or pain over Mcburney's point. MUSCLES/EXTREMITIES No abnormal range of motion, no swelling. SKIN Warm, pink and dry. No rashes, dermatoses, petechiae or lesions. Keloid changes of surgical scar on left knee. NEUROLOGICAL Speech is clear and appropriate. Normal level of consciousness. Gait and coordination are normal. 5/5 strength in all extremities. PSYCH Normal mood and affect. Judgement/competence is appropriate Coding Level of Care Code Est Pt Level 3 (66933) Diagnoses Keloid L91.0 Assessment & Plan Assessment & Plan (1) Keloid: Code(s): L91.0 - Hypertrophic scar Category: Medical Plan: Patient would like to try a new dermatology referral to see if they can do radiation therapy. Radiation oncology referral to help expedite radiation therapy for the Keloid scar. Placed a new Dermatology referral. Plan During the visit, we discussed the patient's ongoing issues with keloid formation over the patella and the associated symptoms of pain and swelling. I explained the potential treatment options, including steroid injections and radiation therapy, and the need for a dermatology referral for further management. We also addressed the patient's concerns about the financial burden of treatment and the importance of follow-up care. Orders: Referrals Radiation Oncology Referral L91.0 - Hypertrophic scar Dermatology Referral L91.0 - Hypertrophic scar
[2025-06-02 13:28] VITALS: PULSE 109; RESP 18; TEMP 36.2; O2SAT 97; BMI 32.8
== END 2025-06-02 14:17 | disposition home or self-care (01) ==
LOC: HO.HMCH 13:18
PROVIDERS: Visit Provider Internal Medicine
DX: L91.0 Hypertrophic scar (principal)

== ENCOUNTER → 2025-06-02 13:16 | Outpatient (BNVA) | payer OTHER, SELFPAY | PROVIDERS: Visit Provider Internal Medicine | DX: L91.0 Hypertrophic scar (principal) | CPT/HCPCS: 99212 ==

== ENCOUNTER 2025-06-25 08:47 | Outpatient (AMB) | payer OTHER, SELFPAY ==
--- OUTSIDE RECORDS SUMMARY | 2025-06-23 11:00 | XMS_ITS | Encounter Summary ---
Author Organization [facility] Address [address] [place] [id number] Phone Care Team Providers Care Metal And Plastic Heater Name Role Phone Fabrice Littlejohn ACCOUNTS RECEIVABLE COLLECTOR Primary Care Provider Reason for Visit * Reason Comments Consult Keloid scar Encounter Details Date Type Department Care Team (Late st Contact Info) Description 06/23/2025 11:00 AM EST Office Visit [facility] Rad Onc [address] [place] [id number] Mark Guerrero MD [address] [place] [address] [email or web address] Keloid scar of skin (Primary Dx) Social History Tobacco Use Types Packs/Day Years Used Date Smoking Tobacco: Never Assessed Education Answer Date Recorded Are you interested in more education? Not on alma e 06/18/2025 Are you concerned about learning? Not on file 06/18/2025 No 06/18/2025 No 06/18/2025 Digital Access Answer Date Recorded No 06/18/2025 No 06/18/2025 Reliable internet access at home? Not on file 06/18/2025 Device with a working camera? Not on file Sex and Gender Information Value Date Recorded Sex Assigned at Not on file Legal Sex Male 2:36 PM EST Gender Identity Not on file Sexual Orientation Not on file documented as of this encounter Last Filed Vital Signs Vital Sign Reading Time Taken Comments Blood Pressure 137/90 06/23/2025 11:10 AM EST Pulse 72 06/23/2025 11:10 AM EST Temperature - - Respiratory Rate - - Oxygen Saturation 98% 06/23/2025 11:10 AM EST Inhaled Oxygen Concentration - - Weight - - Height - - Body Mass Index - - documented in this encounter Progress Notes * Amanda Strickland RN - 06/23/2025 11:00 AM EST Caio is referred to this office to treat keloid of his right knee. He had a fall in August of thisyear that required surgical repair of his right patella. Keloid covers 99% of long scar on right knee. Caio reports this area to be tight, swollen and bothersome as his activity level increases during the day. He has seen a plastic surgeon who does not remove keloids and was hoping that he would beable to proceed directly to radiation to eradicate it. He has another appointment with plastic surgeon in February. He has met with Dr Guerrero and is now aware that radiation can only be performed after the surgical removal of keloid. He sees his PCP on and will request help with finding a plastic surgeon who takes his insurance and might be able to see him sooner than February. He will reach out to this office in the future should he need our services. * Mark Guerrero MD - 06/23/2025 11:00 AM EST Radiation Oncology Consultation Note Name : Caio Angeles Date of : 1970 Date of Visit: 06/23/2025 Biomass Plant Technician: Mark Guerrero MD Referring Physician : Fabrice Littlejohn* Primary Care Physician: Fabrice Littlejohn NP History of Present Illness : This is a 54 y.o.male with a new diagnosis of keloid, at surgical scarat the right anterior knee status post orthopedic surgery, and is seen now in consultation at the request of Fabrice Littlejohn* for consideration of radiotherapy. He had a fall in August of this year that required surgical repair of his right patella. Keloid covers 99% of long scar on right knee. Caio reports this area to be tight, swollen and bothersome as his activity level increases during the day. He has seen a plastic surgeon, but that surgeon did not offer keloid removal as an option. That surgeon offered steroid injections to the scar. Patient was referred here for consideration of radiation therapy for management. No prior history of radiation therapy. No history of lupus, scleroderma, rheumatoid arthritis, inflammatory bowel disease, or pacemaker placement. Review of Symptoms : ROS A 14-point review of systems, which I personally reviewed with the patient, is otherwise negative. Past Medical History: Past Medical History: Diagnosis Date Diabetes mellitus Hypertensive disorder Past Surgical History: Past Surgical History: Procedure Laterality Date ORTHOPEDIC SURGERY Right 08/18/2024 patella repair Medications : Current Outpatient Medications Ordered in [facility] Medication Sig amLODIPine (NORVASC) 10 MG tablet Take 10 mg by mouth daily. hydroCHLOROthiazide 25 MG tablet Take 25 mg by mouth daily. lisinopril (PRINIVIL,ZESTRIL) 40 MG tablet Take 40 mg by mouth daily. metFORMIN (GLUCOPHAGE) 500 MG immediate release tablet Take 1,000 mg by mouth 2 (two) times a day with meals. Current Medications Medication Sig amLODIPine (NORVASC) 10 MG tablet 10 mg, Daily hydroCHLOROthiazide 25 MG tablet 25 mg, Daily lisinopril (PRINIVIL,ZESTRIL) 40 MG tablet 40 mg, Daily metFORMIN (GLUCOPHAGE) 500 MG immediate release tablet 1,000 mg, 2 times daily with meals Allergies : No Known Allergies Social History : Social History Socioeconomic History Marital status: Single Spouse name: Not on file Number of children: Not on file Years of education: Not on file Highest education level: Not on file Occupational History Not on file Tobacco Use Smoking status: Not on file Smokeless tobacco: Not on file Substance and Sexual Activity Alcohol use: Not on file Drug use: Yes Types: Marijuana Sexual activity: Not on file Other Topics Concern Not on file Social History Narrative Not on file Social Drivers of Health Residential Stability: Not on file [address] [facility] [id number] Family History: Family History No family history on file. Physical Exam: Wt Readings from Last 1 Encounters: No data found for Wt Vitals: 06/23/25 1110 BP: (!) 137/90 BP Location: Right arm Patient Position: Sitting Cuff Size: Large Pulse: 72 SpO2: 98% General: Alert and oriented, well-developed, in no acute distress. HEENT: No scleral icterus, jaundice or pallor. Neck is supple without palpable masses or thyromegaly. Lymphatics: No cervical nor supraclavicular lymphadenopathy. Lungs: Clear to auscultation. Heart: Regular rate and rhythm. Abdomen: Soft, nontender, nondistended. Extremities: Free of edema. Long vertically-oriented keloid is present over the site of the surgical scar at the right anterior knee. Measures about 15 cm in length. Measures only about 6 mm in width. Neurological: Cranial nerves grossly intact. Strength is 5 out of 5 in the extremities without gross sensory deficits. Cognition intact. Affect normal. Performance Status : ECOG performance status: 0- Fully active, able to carry on all pre-disease performance without restriction Impression and Plan: This is a 54 y.o. male with keloid arising at surgical scar at the right anterior knee. The optimal management of this would require reexcision of the keloid by a surgeon, followed by initiation of radiotherapy by approximately 24 hours after that reexcision. Typical radiation regimen would involve 7 or 8 Self x 3 fractions, 3 consecutive days. This would be a highly effective approach at preventing keloid recurrence. This would require coordination between the plastic surgeon and a radiation oncologist so that preparations can be made for radiotherapy to begin 24 hours after surgery. This is a much more effective approach at preventing keloid recurrence then simply steroid injections alone. I would be pessimistic that steroid injections would help much at all. Radiotherapy cannot be done in a de ute fashion in the setting of existing keloid--that would not be effective in eliminating the keloid. I explained this to the patient and he indicated understanding. It is imperative that he find a plastic surgeon that is familiar with keloid removals, and the appropriate management involving adjuvant radiotherapy thereafter. The patient will discuss this with his primary care physician within the next few days. I reviewed in detail the risks, benefits and logistics of radiation therapy, including possible short-term side effects and long-term risks. The goal of care is: Pursuit of Cure. All questions were answered. The patient agrees to the proposed treatment plan. Thank you for the referral. I greatly appreciate participating in the care of this patient. 45 min visit, more than 50% spent on counseling regarding disease management and coordination of care. Mark Guerrero MD Radiation Oncology [place], [place] documented in this encounter Plan of Treatment Not on file documented as of this encounter Visit Diagnoses Diagnosis Keloid scar of skin- Primary Keloid scar documented in this encounter Care Teams Metal And Plastic Heater Relationship Specialty Start Date End Date Fabrice Littlejohn NP [address] [place] [address] [address] [place] [address] PCP - General Nurse Practitioner 06/18/25 documented as of this encounter Additional Source Comments The information contained in this document represents components of the legal health record. It is not the complete legal health record.[facility]
--- NOTE | 2025-06-25 08:53 | A.OFFPC_ITS ---
Vital Signs 06/25/25 08:55 Height 5 ft 9 in Weight 219 lb 6 oz BMI 32.4 BP 130/70 Blood Pressure Location Lt brachial Position Sitting Pulse 103 H Pulse Source Pulse Oximeter Temp 97.3 F Temp Source Temporal Artery Scan Pulse Oximetry (%) 98 Oxygen Delivery Method Room Air Intake Visit Reasons: htn/dm Intake Note: Patient is here to follow up on HTN, DM. Therapy Site Coordinator Required: No Painting Supervisor: Not Required per policy Accompanied by: Self / Same As Patient Allergies No Known Allergies Allergy (Verified 06/25/25 09:17) seasonal Allergy (Unknown, Uncoded 06/25/25 09:17) Unknown Medication List - Last Reconciled 06/25/25 by GERMANIA Trent amlodipine 10 mg PO DAILY empagliflozin (Jardiance) 25 mg PO DAILY hydrochlorothiazide 25 mg PO DAILY lisinopril 40 mg PO DAILY metformin ER 1,000 mg (2 x 500 mg) PO BID Tobacco use date assessed: 06/25/25 Dental Screening Dental Screen Date: 06/02/25 HPI htn/dm HPI Details wbc 4.5, rbc 5.20, h&H 15.3/44.7, plt 194, fasting glucos 259, bun 15, cr 1.10, gfr 80, na 140, k+ 4.3, chl 101,, AST 35, ALT 63, TOTAL 198, tri 221, hdl 44, , ldl 115, aic 11.4, vitamin D 16, tsh wth 1.010 had issues gettign his jardiance approved, a1c increased to 12 right [facility] Medical History Obesity Diabetes mellitus with coincident hypertension Type 2 diabetes mellitus without complications Surgical History History of right knee surgery Family History Father No problems noted. Mother Stroke Hypertension Cancer Brother Substance use disorder Social History Housing: House Alcohol intake: current Alcohol intake frequency: holidays/special occasions only Patient Tobacco Use Status: Never used Tobacco e-Cigarette/Vaping Use: Never Used Second Hand Smoke Exposure: No service: No Current occupational status: employed Cognitive needs: No Hearing needs: No Vision needs: No Questionnaire Thrive Questionnaire Date Thrive assessed: 12/22/24 I am a: Patient What is your living situation today?: I have a steady place to live Within the past 12 months, did the food you bought not last and you didn't have the money to get more?: I choose not to answer this question Within the past 12 months, did you worry whether your food would run out before you got money to buy more?: Never true Do you have trouble paying for medicines?: No Do you have trouble getting transportation to medical appointments?: No Do you have trouble paying your heating and electricity bill?: No Do you have trouble taking care of your child, family member or friend?: No Do you have trouble with day-to-day activities such as bathing, preparing meals, shopping, managing finances, etc.?: No Are you currently unemployed and looking for a job?: No Are you interested in more education?: No Please select the resources that you would like help with: None Currently or been in a relationship where the following occur: I choose not to answer THRIVE Score: 0 NIDHI-7 AMB Questionnaire NIDHI-7 Date NIDHI - 7 assessed: 03/25/25 Source: Developed by Drs. Otto Bhatt, Esha Valera, Fareed Wynn and colleagues, with an educational juan from 3yy game platform. Physical exam (Primary Care) Vital Signs: Last Vital Signs Temp 97.3 F 06/25/25 08:55 Pulse 103 H 06/25/25 08:55 BP 130/70 06/25/25 08:55 Pulse Ox 98 06/25/25 08:55 Oxygen Delivery Method Room Air 06/25/25 08:55 BMI result Body Mass Index 32.4 Tobacco/Smoking Status: Tobacco use Status Tobacco use date assessed 06/25/25 06/25/25 09:05 Patient Tobacco Use Status Never used Tobacco 06/25/25 09:05 e-Cigarette/Vaping Use Never Used 06/25/25 09:05 Thrive Assessment: Date of Thrive Assessment Date Thrive assessed 12/22/24 06/25/25 09:05 Currently or been in a relationship where the following occur: I choose not to answer Results AMB Hemoglobin A1c AMB Hemoglobin A1c 12.5 % Last Edit by ZI Pritchett on 06/25/25 09:0 9 Results Reviewed Results Reviewed: Laboratory Last Values Hgb A1c (Clinic) 12.5 % (4.0-6.0) H 06/25/25 08:50 Coding Assessment & Plan Assessment & Plan Orders: Orders Comprehensive [place]. Panel Fast 3 Months E11.9 - Type 2 diabetes mellitus without complications, E66.811 - Obesity, class 1, E78.00 - Pure hypercholesterolemia, unspecified, E78.2 - Mixed hyperlipidemia, I10 - Essential (primary) hypertension, R74.01 - Elevation of levels of liver transaminase levels, Z68.33 - Body mass index [BMI] 33.0-33.9, adult Lipid Panel 3 Months E11.9 - Type 2 diabetes mellitus without complications, E66.811 - Obesity, class 1, E78.00 - Pure hypercholesterolemia, unspecified, E78.2 - Mixed hyperlipidemia, I10 - Essential (primary) hypertension, R74.01 - Elevation of levels of liver transaminase levels, Z68.33 - Body mass index [BMI] 33.0-33.9, adult TSH reflex Free T4 3 Months E11.9 - Type 2 diabetes mellitus without complications, E66.811 - Obesity, class 1, E78.00 - Pure hypercholesterolemia, unspecified, E78.2 - Mixed hyperlipidemia, I10 - Essential (primary) hypertension, R74.01 - Elevation of levels of liver transaminase levels, Z68.33 - Body mass index [BMI] 33.0-33.9, adult Vitamin D 25-OH Total 3 Months E11.9 - Type 2 diabetes mellitus without complications, E66.811 - Obesity, class 1, E78.00 - Pure hypercholesterolemia, unspecified, E78.2 - Mixed hyperlipidemia, I10 - Essential (primary) hypertension, R74.01 - Elevation of levels of liver transaminase levels, Z68.33 - Body mass index [BMI] 33.0-33.9, adult AMB Hemoglobin A1c Today E11.9 - Type 2 diabetes mellitus without complications, I10 - Essential (primary) hypertension Hemoglobin A1c 3 Months E11.9 - Type 2 diabetes mellitus without complications, E66.811 - Obesity, class 1, E78.00 - Pure hypercholesterolemia, unspecified, E78.2 - Mixed hyperlipidemia, I10 - Essential (primary) hypertension, R74.01 - Elevation of levels of liver transaminase levels, Z68.33 - Body mass index [BMI] 33.0-33.9, adult Complete Blood Count Auto Diff 3 Months E11.9 - Type 2 diabetes mellitus without complications, E66.811 - Obesity, class 1, E78.00 - Pure hypercholesterolemia, unspecified, E78.2 - Mixed hyperlipidemia, I10 - Essential (primary) hypertension, R74.01 - Elevation of levels of liver transaminase levels, Z68.33 - Body mass index [BMI] 33.0-33.9, adult UA CC w/rflx Micro + Cult 3 Months E11.9 - Type 2 diabetes mellitus without complications, E66.811 - Obesity, class 1, E78.00 - Pure hypercholesterolemia, unspecified, E78.2 - Mixed hyperlipidemia, I10 - Essential (primary) hypertension, R74.01 - Elevation of levels of liver transaminase levels, Z68.33 - Body mass index [BMI] 33.0-33.9, adult Medications: Refilled empagliflozin (Jardiance) 25 mg PO DAILY 90 tabs 3RF E11.9 - Type 2 diabetes mellitus without complications, I10 - Essential (primary) hypertension
[2025-06-25 08:55] VITALS: BP 130/70; PULSE 103; TEMP 36.3; O2SAT 98; BMI 32.4
--- OUTSIDE RECORDS SUMMARY | 2025-06-25 09:14 | XMS_ITS | Clinical Summary ---
Author Organization [facility] Address [address] [place] [address] Phone Care Team Providers Care Bale Opener Name Role Phone Milad Littlejohnuriccyn Floyd WAITER/WAITRESS FORMAL Primary Care Provider Allergies No known active allergies Medications amLODIPine (NORVASC) 10 MG tablet Take 10 mg by mouth daily. Active hydroCHLOROthiaz danilo 25 MG tablet Take 25 mg by mouth daily. Active lisinopril (PRINIVIL,ZESTRI L) 40 MG tablet Take 40 mg by mouth daily. Active metFORMIN (GLUCOPHAGE) 500 MG immediate release tablet Take 1,000 mg by mouth 2 (two) times a day with meals. Active Active Problems Problem Noted Date Diagnosed Date Keloid scar of skin 06/23/2025 Encounters Date Type Department Care Team Description 06/23/2025 11:00 AM EST Office Visit [facility] [facility] Rad Onc [address] [place] [address] Mark Guerrero MD Keloid scar of skin (Primary Dx) from Last 3 Months Social History Tobacco Use Types Packs/Day Years [...] on file Sexual Orientation Not on file Last Filed Vital Signs Vital Sign Reading Time Taken Comments Blood Pressure 137/90 06/23/2025 11:10 AM EST Pulse 72 06/23/2025 11:10 AM EST Temperature - - Respiratory Rate - - Oxygen Saturation 98% 06/23/2025 11:10 AM EST Inhaled Oxygen Concentration - - Weight - - Height - - Body Mass Index - - Plan of Treatment Health Maintenance Due Date Last Done Comments Adult Td,Tdap Booster 1970 CREATININE LEVEL 1970 LIPID PANEL 1970 POTASSIUM LEVEL 1970 DEPRESSION SCREENING 1982 SMOKING Hx and SMOKELESS TOB ACCO SCREENING 1983 HEPATITIS C SCREENING 1988 HIV ONE-TIME SCREENING (18-6 5 YEARS) 1988 COLOGUARD 2015 COLONOSCOPY 2015 COLORECTAL CANCER SCREENING 2015 FIT TEST 2015 FOBT 2015 SIGMOIDOSCOPY 2015 VIRTUAL COLONOSCOPY 2015 PNEUMOCOCCAL VACCINES (50+ y ears) (1 of 1 - PCV) 2020 ZOSTER VACCINES (1 of 2) 2020 INFLUENZA VACCINE (#1) 2025 COVID-19 VACCINE (1 - 2024-2 6 season) 2025 RSV VACCINE (1 - 1-dose 75+ series) 2045 HEPATITIS A VACCINES Aged Out No long er eligible based on patient's age to complete this topic HIB VACCINES Aged Out No longer eligi ble based on patient's age to complete this topic IPV VACCINES Aged Out No longer eligi ble based on patient's age to complete this topic MENINGOCOCCAL VACCINES (ACWY) Aged Out No longer eligible based on patient's age to complete this topic MENINGOCOCCAL VACCINES (B) Aged Out N o longer eligible based on patient's age to complete this topic Medical Devices Not on file Insurance [employer] NON NSPG PCP [employer] [address] [place], [place] [address]ENSE NON NSPG PCP [employer] [address] [place], [place] [address]ENSE NON NSPG PCP [employer] NON NSPG PCP [employer] [place] [address] NON NSPG PCP [employer] [address] [place] [address] NON NSPG PCP [employer] Care Teams Bale Opener Relationship Specialty Start Date End Date Fabrice Littlejohn NP [address] [place] [address] [address] [place] [address] PCP - General Nurse Practitioner 06/18/25 Additional Source Comments The information contained in this document represents components of the legal health record. It is not the complete legal health record.[facility]
== END 2025-06-25 10:05 | disposition home or self-care (01) ==
LOC: HO.HMCH 08:48
DX: E11.9 Type 2 diabetes mellitus without complications (principal); I10 Essential (primary) hypertension

== ENCOUNTER → 2025-06-25 08:47 | Outpatient (BNVA) | payer OTHER, SELFPAY | DX: E11.9 Type 2 diabetes mellitus without complications (principal); L91.0 Hypertrophic scar; E55.9 Vitamin D deficiency, unspecified; I10 Essential (primary) hypertension; R74.01 Elevation of levels of liver transaminase levels; E78.2 Mixed hyperlipidemia; E66.811 Obesity, class 1; Z68.33 Body mass index [BMI] 33.0-33.9, adult | CPT/HCPCS: 83036; 99212 ==